=== PATIENT | male | born 1965 | race Caucasian/White ===

== ENCOUNTER 2022-02-27 11:39 | Outpatient (CLI) | payer OTHER, SELFPAY ==
[2022-02-27 22:00] LABS: Chloride* 101 mmol/L (96-114); Sodium* 139 mmol/L (135-149)
[2022-02-27 22:01] LABS: Albumin* 4.4 g/dL (3.3-5.0)
[2022-02-27 22:04] LABS: Alanine Aminotransferase* 52 U/L (4-50); Alkaline Phosphatase* 60 U/L (40-150); Aspartate Amino Transferase* 35 U/L (12-35); Bilirubin Total* 0.9 mg/dL (0.1-1.5); Blood Urea Nitrogen* 16 mg/dL (7-30); Calcium* 9.3 mg/dL (8.4-10.6); Carbon Dioxide* 30 mmol/L (20-32); Cholesterol* 224 mg/dL (90-199); Estimated Glomerular Filt Rate 88 ml/min; Glucose* 98 mg/dL (60-115); Total Protein* 6.8 g/dL (6.0-8.3); Triglycerides* 256 mg/dL (40-149)
[2022-02-27 22:05] LABS: HDL Cholesterol* 45 mg/dL (>=40); LDL Cholesterol Calculated 128 mg/dL (<100)
[2022-02-27 22:38] LABS: PSA Screen* 1.99 ng/mL (0.10-4.00)
== END 2022-02-27 11:40 | disposition home or self-care (01) ==
PROVIDERS: PCP Family Medicine; Visit Provider Family Medicine
DX: Z00.00 Encounter for general adult medical examination without abnormal findings (principal); Z01.818 Encounter for other preprocedural examination; Z12.5 Encounter for screening for malignant neoplasm of prostate; Z13.6 Encounter for screening for cardiovascular disorders
CPT/HCPCS: 80053; 80061; 84153

== ENCOUNTER 2023-12-02 23:22 | Emergency (ER) | payer OTHER, SELFPAY ==
[2023-12-02 23:31] VITALS: BP 186/98; PULSE 56; RESP 18; TEMP 36.2; O2SAT 94; BMI 28.1
--- NOTE | 2023-12-02 23:58 | ED_ITS ---
HPI - Back Pain/Injury General Time Seen by Provider: 23:59 Date Seen: 12/02/23 Chief Complaint: Back Injury/Pain Stated Complaint: back pain Time Seen by Provider: 12/02/23 23:58 Source: patient and RN notes reviewed Mode of arrival: ambulatory Limitations: no limitations Related Data Home Medications ?Medication ?Instructions ?Recorded ?Confirmed albuterol sulfate 90 mcg/actuation 2 inhalation PRN 02/27/22 12/31/22 aerosol inhaler cyclobenzaprine 10 mg tablet 10 mg PO TID PRN 02/27/22 12/31/22 Allergies Allergy/AdvReac Type Severity Reaction Status Date / Time No Known Allergies Allergy Unknown Verified 12/31/22 15:36 [facility] Medical History (Updated 05/07/22 @ 08:18 by Leslye Hernandes MD) Dupuytren's contracture of right hand ?M72.0 - Palmar fascial fibromatosis [Dupuytren] (ICD-10) Lesion of nose ?J34.89 - Other specified disorders of nose and nasal sinuses (ICD-10) Surgical History (Updated 02/25/22 @ 20:47 by Britni Lopez) History of umbilical hernia repair (05/11/18) ?Z98.890 - Other specified postprocedural states (ICD-10) ?Z87.19 - Personal history of other diseases of the digestive system (ICD-10) History of sinus surgery ?Z98.890 - Other specified postprocedural states (ICD-10) History of repair of right rotator cuff (03/09/16) ?Z98.890 - Other specified postprocedural states (ICD-10) History of left inguinal hernia repair (06/19/15) ?Z98.890 - Other specified postprocedural states (ICD-10) ?Z87.19 - Personal history of other diseases of the digestive system (ICD-10) History of arthroscopy of both knees ?Z98.890 - Other specified postprocedural states (ICD-10) Social History Smoking Status: Never smoker Exam Const: Vital Signs, click to edit/add: Vital Signs - 24 hr 12/02/23 23:31 Temperature 97.2 F L Pulse Rate [Pulse Oximeter] 56 L Respiratory Rate 18 Blood Pressure [Ri ght Upper Arm] 186/98 H Pulse Oximetry 94 Oxygen Delivery Me thod Room Air Course Vital Signs Vital signs: Initial Vital Signs Temperature 97.2 F L 12/02/23 23:31 Temperature Source Temporal Artery Scan 12/02/23 23:31 Pulse Rate 56 L 12/02/23 23:31 Pulse Rhythm Regular 12/02/23 23:31 Respiratory Rate 18 12/02/23 23:31 Blood Pressure 186/98 H 12/02/23 23:31 Blood Pressure Mean 127 H 12/02/23 23:31 Blood Pressure Position Supine 12/02/23 23:31 Pulse Oximetry 94 12/02/23 23:31 Oxygen Delivery Method Room Air 12/02/23 23:31 Vital Signs Temperature 97.2 F L 12/02/23 23:31 Pulse Rate 56 L 12/02/23 23:31 Respiratory Rate 18 12/02/23 23:31 Blood Pressure 186/98 H 12/02/23 23:31 Pulse Oximetry 94 12/02/23 23:31 Oxygen Delivery Method Room Air 12/02/23 23:31 Temperature 97.2 F L 12/02/23 23:31 Pulse Rate 56 L 12/02/23 23:31 Respiratory Rate 18 12/02/23 23:31 Blood Pressure 186/98 H 12/02/23 23:31 Pulse Oximetry 94 12/02/23 23:31 Oxygen Delivery Method Room Air 12/02/23 23:31 Discharge Plan Discharge Prescriptions: No Action cyclobenzaprine 10 mg tablet 10 mg PO TID PRN albuterol sulfate 90 mcg/actuation HFA aerosol inhaler 2 inhalation PRN Follow Up/Referrals: Jose M Cruz MD [Primary Care Provider] -
--- NOTE | 2023-12-03 00:06 | ED_ITS ---
HPI - Back Pain/Injury General Chief Complaint: Back Injury/Pain Stated Complaint: back pain Time Seen by Provider: 12/02/23 23:58 History of Present Illness HPI Narrative: This 58-year-old male comes in with sudden onset of severe low back pain. He was just moving from a sitting position to standing when he had sudden pain in his low back which she seems to feel that it is a bit left of midline. He does have a chronic history of spine problems and has had a surgery on C7 for cervi lul radiculopathy. He does not report any recent strenuous activity or injury event. He did take hydrocodone that he had left over at home prior to arrival. Related Data Home Medications ?Medication ?Instructions ?Recorded ?Confirmed albuterol sulfate 90 mcg/actuation 2 inhalation PRN 02/27/22 12/31/22 aerosol inhaler cyclobenzaprine 10 mg tablet 10 mg PO TID PRN 02/27/22 12/31/22 Previous Rx's ?Medication ?Instructions ?Recorded hydrocodone 5 mg-acetaminophen 325 1 tab PO Q4-6H PRN pain #15 tabs 12/03/23 mg tablet ketorolac 10 mg tablet 10 mg PO TID 5 days #15 tabs 12/03/23 methylprednisolone 4 mg tablets in See Rx Instructions PO .COMPLEX 12/03/23 a dose pack (Medrol (Bertrand)) #21 ea tizanidine 4 mg capsule (Zanaflex) 4 mg PO TID PRN muscle spasticity 12/03/23 #20 caps Allergies Allergy/AdvReac Type Severity Reaction Status Date / Time No Known Allergies Allergy Unknown Verified 12/31/22 15:36 Review of Systems Status of ROS: Reports: 10 or more systems reviewed and unremarkable except as noted in History and below Narrative: Constitutional: No fevers, no weight gain or loss. Eyes: No discharge. No vision changes. HENT: No congestion, no sore throat, no ear pain. Cardiovascular: No chest pain, no palpitations. Respiratory: No shortness of breath, no wheezes, no cough. Gastrointestinal: No abdominal pain, no vomiting, no diarrhea. Genitourinary: No dysuria, no hematuria. Musculoskeletal: Normal range of motion. Low back pain as described above. Skin: No rashes, no pruritis. Neurological: No dizziness, weakness, sensory change, speech change. Endo/Heme/Allergies: No bruising or bleeding. No polydipsia. Pysch: no suicidality, no anxiety, no insomnia. All other systems reviewed and are negative. [facility] Medical History (Updated 12/03/23 @ 00:09 by Uche Chen MD) Dupuytren's contracture of right hand ?M72.0 - Palmar fascial fibromatosis [Dupuytren] (ICD-10) Lesion of nose ?J34.89 - Other specified disorders of nose and nasal sinuses (ICD-10) Surgical History (Updated 02/25/22 @ 20:47 by Britni Lopez) History of umbilical hernia repair (05/11/18) ?Z98.890 - Other specified postprocedural states (ICD-10) ?Z87.19 - Personal history of other diseases of the digestive system (ICD-10) History of sinus surgery ?Z98.890 - Other specified postprocedural states (ICD-10) History of repair of right rotator cuff (03/09/16) ?Z98.890 - Other specified postprocedural states (ICD-10) History of left inguinal hernia repair (06/19/15) ?Z98.890 - Other specified postprocedural states (ICD-10) ?Z87.19 - Personal history of other diseases of the digestive system (ICD-10) History of arthroscopy of both knees ?Z98.890 - Other specified postprocedural states (ICD-10) Social History Smoking Status: Never smoker Exam Narrative: Exam Narrative: Constitutional: Well-developed, well-nourished, no acute distress. HEENT: Normocephalic, atraumatic. Neck: Normal range of motion. Nontender. Supple. Heart: Regular. No murmurs. Normal rate. Intact distal pulses. Lungs: Clear to auscultation. No chest discomfort. No wheezes, rhonchi, or rales. Abdomen: Normal bowel sounds. Nontender. No rebound tenderness. Genitalia: Deferred. Back: No midline tenderness. Decreased range of motion due to pain. He reports pain across the low back, left greater than right. There is no radiating pain down either leg. Extremities: Normal range of motion. No injury. Skin: Intact. No rash. Warm. No erythema or pallor. Neurologic: No altered sensation. No weakness. Alert and oriented. Psychiatric: No suicidality. No anxiety or depression. No insomnia. Nursing notes and vitals signs are reviewed. Const: Vital Signs, click to edit/add: Vital Signs - 24 hr 12/02/23 23:31 Temperature 97.2 F L Pulse Rate [Pulse Oximeter] 56 L Respiratory Rate 18 Blood Pressure [Ri ght Upper Arm] 186/98 H Pulse Oximetry 94 Oxygen Delivery Me thod Room Air Course Vital Signs Vital signs: Initial Vital Signs Temperature 97.2 F L 12/02/23 23:31 Temperature Source Temporal Artery Scan 12/02/23 23:31 Pulse Rate 56 L 12/02/23 23:31 Pulse Rhythm Regular 12/02/23 23:31 Respiratory Rate 18 12/02/23 23:31 Blood Pressure 186/98 H 12/02/23 23:31 Blood Pressure Mean 127 H 12/02/23 23:31 Blood Pressure Position Supine 12/02/23 23:31 Pulse Oximetry 94 12/02/23 23:31 Oxygen Delivery Method Room Air 12/02/23 23:31 Vital Signs Temperature 97.2 F L 12/02/23 23:31 Pulse Rate 56 L 12/02/23 23:31 Respiratory Rate 18 12/02/23 23:31 Blood Pressure 186/98 H 12/02/23 23:31 Pulse Oximetry 94 12/02/23 23:31 Oxygen Delivery Method Room Air 12/02/23 23:31 Temperature 97.2 F L 12/02/23 23:31 Pulse Rate 56 L 12/02/23 23:31 Respiratory Rate 18 12/02/23 23:31 Blood Pressure 186/98 H 12/02/23 23:31 Pulse Oximetry 94 12/02/23 23:31 Oxygen Delivery Method Room Air 12/02/23 23:31 MDM - Back Pain/Injury MDM Narrative Medical decision making narrative: This patient has a flare-up of low back pain as described above. There was no mechanism of injury that mandates imaging at this time. If not improved he may need MRI imaging. The patient received an intramuscular injection of morphine. I provided prescriptions for Broussard, Zanaflex, and Medrol Dosepak. I advised him to follow-up with spine clinic if not improving or worsening. Discharge Plan Discharge Clinical Impression: Low back pain Patient Disposition: Home w/ Parent or Adult Condition: Stable Additional Instructions: Take medication as needed and indicated. Activity as tolerated. Follow up with Spine Clinic if not improving or worsening. Call [phone] for appointment. Prescriptions: New hydrocodone-acetaminophen 5-325 mg tablet 1 tab PO Q4-6H PRN (Reason: pain) Qty: 15 0RF ketorolac 10 mg tablet 10 mg PO TID 5 Days Qty: 15 0RF methylprednisolone [Medrol (Bertrand)] 4 mg tablets,dose pack See Rx Instructions .ROUTE .COMPLEX Qty: 21 0RF Rx Instructions: orally per package directions tizanidine [Zanaflex] 4 mg capsule 4 mg PO TID PRN (Reason: muscle spasticity) Qty: 20 0RF No Action cyclobenzaprine 10 mg tablet 10 mg PO TID PRN albuterol sulfate 90 mcg/actuation HFA aerosol inhaler 2 inhalation PRN Follow Up/Referrals: Jose M Cruz MD [Primary Care Provider] - Stand Alone Forms: [facility] Info Instructions
[2023-12-03] MEDS: MORPHINE 10 MG/ML inj IM (00:17)
--- OUTSIDE RECORDS SUMMARY | 2023-12-03 00:21 | XMS_ITS | Clinical Summary ---
Author Organization [facility] Address [address] [place] [address] Care Team Providers Care Cable Operator Name Role Phone Clinician, Not Found MD Primary Care Provider Un available Source Comments You are receiving this document as you are listed as the primary care provider,follow-up provider, or the patient has been referred to you for consultation.This is in compliance with the Medicare and[facility] EHR Incentive Program,which states Providers who transition their patient to another setting of careor provider of care or refers their patient to another provider of care shouldprovide summary care record for each transition of care or referral. [facility] Allergies No known active allergies Medications Medication Sig Dispensed Refills Start Date End Date Status ALBUTEROL IN Inhale 2 puffs every 4 hours as needed. LW Addl Instr:Indicated for: Asthma/cough 34 3 09/18/2007 Active mometasone (NASONEX) 50 MCG/ACT nasal solution Place 2 sprays into each nostril daily (every 24 hours). 09/26/2015 Active omeprazole (PRILOSEC) 10 MG capsule Take 10 mg by mouth daily. Take 1 hour before a meal. Active ALBUterol sulfate HFA 108 (90 Base) MCG/ACT inhaler INHALE 2 PUFFS BY MOUTH EVERY 4 HOURS NEEDED 07/19/2020 Active ADVAIR DISKUS 100-50 MCG/DOSE inhaler 1 Puff two times a day. 08/14/2020 Active Glucosamine-Chondroi tin 4976-9979 MG/30ML Take by mouth. Active multivitamin with minerals (THERA M PLUS) tablet Take 1 Tablet by mouth. Active naproxen (NAPROSYN) 500 MG tablet Take 1 Tablet by mouth two times daily as needed. 60 Tablet 10/01/2020 Active sulindac (CLINORIL) 150 MG tablet Take 1 Tablet by mouth two times daily as needed for Other (pain). 60 Tablet 10/16/2020 Active gabapentin (NEURONTIN) 300 MG capsule Take 1 Capsule by mouth three times a day. 270 Capsule 3 10/22/2020 Active Active Problems Problem Noted Date Diagnosed Date Allergic rhinitis 03/05/2004 Overview: Rhinitis Allergic NOS Social History Tobacco Use Types Packs/Day Years Used Date Smoking Tobacco: Never Smokeless Tobacco: Never Alcohol Use Standard Drinks/Week Comments Yes 0 (1 standard drink = 0.6 oz pur e alcohol) socially Sex and Gender Information Value Date Recorded Sex Assigned at Not on file Gender Identity Not on file Sexual Orientation Not on file Last Filed Vital Signs Vital Sign Reading Time Taken Comments Blood Pressure 137/86 03/09/2016 10:45 AM CDT Pulse 54 03/09/2016 10:45 AM CDT Temperature 35.7 ??C (96.2 ??F) 09/27/2020 2:34 PM CD T Respiratory Rate 16 03/09/2016 10:45 AM CDT Oxygen Saturation 97% 03/09/2016 10:45 AM CDT Inhaled Oxygen Concentration - - Weight 102.1 kg (225 lb) 10/22/2020 7:55 AM CDT Height 190.5 cm (6' 3) 10/22/2020 7:55 AM CDT Body Mass Index 28.12 10/22/2020 7:55 AM CDT Plan of Treatment Health Maintenance Due Date Last Done Comments Colon Cancer Screening Plan Due 1965 Hep C Screening (Preventive Services) 1965 PSA Screening Discussion 1965 HIV Screening (Preventive Services) 1981 Adult Preventive Visit 1983 HepB (1) 1984 Cholesterol 10/31/2009 10/31/2004 COVID-19 Vaccine (4 - 2022-2 4 season) 2023 05/14/2021, 10/08/2020, 09/17/2020 Influenza (Season Ended) 2024 022, 04/04/2018 DTaP/Tdap/Td (3 - Tdap) 07/19/2030 07/19/19 21, 04/02/2008 Zoster/Shingles Completed 01/28/2022, 05/14/2021 HepA Aged Out No longer eligi ble based on patient's age to complete this topic Hib Aged Out No longer eligi ble based on patient's age to complete this topic IPV (Polio) Aged Out No longer eligi ble based on patient's age to complete this topic MCV4 Aged Out No longer eligi ble based on patient's age to complete this topic Pneumococcal Aged Out No longer eligi ble based on patient's age to complete this topic Medical Devices Implanted Type Area Rail Filler Device Identifier Shelf Expiration Date Model / Serial / Lot Anch Sut Bioswlk C 4.75x19 - [id number] Implanted:Qty: 2 on 03/09/2016 by Eric Sherwood MD at [facility] Right: SHOULDER [employer] 11/04/2017 [id number] / [id number] / [id number] Procedures Procedure Name Priority Date/Time Associated Diagnosis Comments LIPID PANEL & DIRECT LDL (IF NEEDED) Routine 10/31/2004 10:58 AM CDT from Last 3 Months or Most Recently Relevant to Health Maintenance Results * (ABNORMAL) Lipid Panel and Direct LDL(If Needed) (10/31/2004 10:58 AM CDT) Cholesterol/HDL Ratio Screen 4.7 No normal range HP CONVERSION Cholesterol 211(H) <200 mg/dL HP CONVERSION Comment: Borderline high: 200-239 mg/dL High risk: >240 mg/dL HDL Cholesterol 45 40 - 60 mg/dL HP CONVERSION Triglycerides 133 0 - 149 mg/dL HP CONVERSION LDL Calculated 139(H) 0 - 130 mg/dL HP CONVERSION Comment: Desirable: <130 mg/dL (<100 if diabetes or coronary heart disease) Borderline high: 130-159 mg/dL High risk: >159 mg/dL 10/31/2004 10:5 8 AM CDT Paul Landrum MD LAB_[email or web address] HP CONVERSION from Last 3 Months or Most Recently Relevant to Health Maintenance Advance Directives * Full Code (Latest Code Status on File) Date Activated Date Inactivated Comments 03/09/2016 9:11 AM 03/09/2016 1:28 PM Full code in effect for 30 days Care Teams Cable Operator Relationship Specialty Start Date End Date Clinician, Not Found, [place] [address] PCP - General 09/19/15
--- OUTSIDE RECORDS SUMMARY | 2023-12-03 00:22 | XMS_ITS | Referral Summary ---
Author Organization [facility] Address [address] [place] [address]. [place] [address] Care Team Providers Care Refinery Operator Reforming Unit Name Role Phone Unavailable Primary Care Provider Unavailabl e Allergies Active Allergy Reactions Criticality Noted Date Comments Seasonal Allergies 11/27/2011 Medications Medication Sig Dispensed Refills Start Date End Date Status Naproxen Sodium (ALEVE PO) Take by mouth 2 times daily Active multivitamin w/minerals (MULTI-VITAMIN) tablet Take 1 tablet by mouth daily Active Glucosamine-Chondroit in (GLUCOSAMINE CHONDR COMPLEX PO) Active HYDROcodone-acetamino phen (NORCO) 5-325 MG tabletIndications:Umb ilical hernia without obstruction and without gangrene Take 1-2 tablets by mouth every 4 hours as needed (Moderate to Severe Pain) 20 tablet 05/11/2018 Active Active Problems Problem Noted Date Diagnosed Date Other kyphoscoliosis and scoliosis 06/21/2007 Lipoma of other skin and subcutaneous tissue Allergic rhinitis 03/05/2004 Overview: Overview: Rhinitis Allergic NOS Resolved Problems Problem Noted Date Diagnosed Date Resolved Date CARDIOVASCULAR SCREENING; LD L GOAL LESS THAN 160 04/06/2010 06/12/2015 Immunizations Name Administration Dates Next Due TDAP Vaccine (Adacel) 04/02/2008 Social History Tobacco Use Types Packs/Day Years Used Date Smoking Tobacco: Never Smokeless Tobacco: Never Tobacco Cessation:Counseling Given: Yes Alcohol Use Standard Drinks/Week Comments Yes 0 (1 standard drink = 0.6 oz pur e alcohol) 5-10 drinks per week PHQ-2 Answer Date Recorded PHQ-2 Score 0 06/15/2018 Adolescent Education Answer Date Record ed Getting School Help Needed Not on file 03/23 Sex and Gender Information Value Date Recorded Sex Assigned at Not on file Gender Identity Not on file Sexual Orientation Not on file Last Filed Vital Signs Vital Sign Reading Time Taken Comments Blood Pressure 129/71 05/11/2018 6:14 PM SPRING INTERN Pulse 68 05/09/2018 9:39 AM SPRING INTERN Temperature 36.3 ??C (97.3 ??F) 05/11/2018 5:24 PM CS T Respiratory Rate 16 05/11/2018 6:14 PM SPRING INTERN Oxygen Saturation 95% 05/11/2018 6:14 PM SPRING INTERN Inhaled Oxygen Concentration - - Weight 103.4 kg (228 lb) 05/11/2018 11:52 AM SPRING INTERN Height 190.5 cm (6' 3) 05/11/2018 11:52 AM SPRING INTERN Body Mass Index 28.5 05/11/2018 11:52 AM SPRING INTERN Plan of Treatment Not on file Medical Devices Implanted Type Area Web Design Intern Device Identifier Shelf Expiration Date Model / Serial / Lot Mesh Ventralex Hernia 2.5 [place] [employer] W/Strap [id number] Implanted:Qty : 1 on 05/11/2018 by Anna Balbuena MD at [facility] Mesh N/A: Umbilical [employer]-DAVOL 02/02/2020 [id number] / / [id number] Mesh Ultrapro Hernia 2.4x4.7 Large Uhsl Implanted:Qty : 1 on 06/19/2015 by Trent Thompson MD at [facility] Left: Inguinal [employer]- 10/04/2016 UHSL / / [id number]
--- OUTSIDE RECORDS SUMMARY | 2023-12-03 00:22 | XMS_ITS | Continuity of Care Document ---
Author Organization [facility] Address [address] [place] [address] Phone Care Team Providers Care Food Processor Name Role Phone Jessica COLEMAN, PhD, Bernardo Unavailable Unavai lable Allergies, Adverse Reactions, Alerts Substance Reaction Status Criticality No Known Allergies Active No Inform ation Medications Medication Instructions Dosage Effective Dates (start - stop) Status Comments TYLENOL (unknown strength) Not Available - Active Procedures Procedure Date Office/Outpatient Visit,Est, Mod 2022 Postop Followup Visit ACDF - Anterior Cervical Discectomy and Fusion - PA Anterior Instrumentation, 2-3 Segments - PA PEEK/ Cage/ Implant, For Interbody Fusio n - PA ACDF - Anterior Cervical Discectomy and Fusion Anterior Instrumentation, 2-3 Segments S PEEK/ Cage/ Implant, For Interbody Fusio n Autograft, From Same Incision Office/Outpatient Visit,Est, Mod 2021 Office/Outpatient Visit,Est, Mod 2021 OFFICE/OUTPATIENT VISIT EST Phone Office/Outpatient Visit,Est, Mod 2019 X-Ray Exam Of Neck Spine, 4+ Views Office/Outpatient Visit,New, Min 2017 Advance Directives Directive Yes / No Effective Date File Name No Information Encounters Encounter Description Practice Location Reason(s) For Visit Diagnoses Date Provider Providers Copied on Encounter Office/Outpat ient Visit,Est, Mod [facility], [address], [place], [place], [id number] , [place] tel:[phone] [facility] Encounter for other specified surgical aftercare 3 Jessica Chang. [facility], [address], [place], [address], [place]. tel:[phone] Referring Provider: Peter Cole, [facility] [address], [place], [address]. tel:[phone] [facility], [address], [place], [place], [address] , [place] tel:[phone] [facility] Encounter for other specified surgical aftercare 2 Jessica Chang. [facility], [address], [place], [address], [place]. tel:[phone] Referring Provider: Peter Cole, [facility] [address], [place], [address]. tel:[phone] [facility], [address], [place], [place], [id number] , [place] tel:[phone] [facility] No Information Sep-3 2 Douglas Green. [facility], [address], [place], [place], [id number], [place]. tel:[phone] Referring Provider: Peter Cole [facility] [address], [place], [address]. tel:[phone] [facility], [address], [place], [address] , [place] tel:[phone] [facility] No Information Sep-2 2 Jessica Chang. [facility], [address], [place], [address], [place]. tel:[phone] Referring Provider: Peter Cole [facility] [address], [place], [address]. tel:[phone] Office/Outpat ient Visit,Est, Mod [facility], [address], [place], [place], [id number] , [place] tel:[phone] [facility] Cervical disc disorder at C6-C7 level with radiculopathy 2 Douglas Green. [facility], [address], [place], [place], [address], [place]. tel:[phone] Referring Provider: Peter Cole, [facility] [address], [place], [address]. tel:[phone] Office/Outpat ient Visit,Est, Mod [facility], [address], [place], [place], [id number] , [place] tel: [phone] [facility] Cervical disc disorder at C6-C7 level with radiculopathy 2 Douglas Green. [facility], [address], [place], [place], [address], [place]. tel:[phone] Referring Provider: Peter Cole, [facility] [address], [place], [address]. tel:[phone] OFFICE/OUTPAT IENT VISIT EST Phone [facility], [address], [place], [place], [address] , [place] tel:[phone] [facility] No Information 0 Douglas Green. [facility], [address], [place], [place], [address], [place]. tel:[phone] Referring Provider: Peter Cole, [facility] [address], [place], [address]. [phone] Office/Outpat ient Visit,Est, Mod [facility], [address], [place], [place], [address] , [place] tel:[phone] [facility] Radiculopathy, cervical region 0 Douglas Green. [facility], [address] [facility] [address], [id number], . tel:[phone] Referring Provider: Milo Langston, [facility] [address], [address], [address]. tel:[phone] Office/Outpat ient Visit,New, Min [facility], [address], [place], [place], [address] , tel:[phone] [facility] Other intervertebral disc degeneration, lumbar region 8 Transfeldt Milo. [facility], [address] [place] [address], [address], [id number], . tel:[phone] Referring Provider: Milo Langston, [facility] [address], [address], [address]. tel:[phone] Family History Family Member Type Diagnosis Age At Onset No Information Payers Payer name Insurance type Covered republican ID Fang laureano(s) [facility] CI [id number] Social History Type Description Quantity Date Captured Comments Alcohol Use Details Unknown Caffeine Use Details Unknown Tobacco Use Status Current non-smoker Smoking Status Never smoker Non-Smoking Tobacco Use Details : No Details Available : No Details Available Sex Male Vital Signs Date / Time: Height Weight BMI Pulse Rate Blood Pressure Temperature Respiratory Rate Body Surface Area Head Circumference Head Circ. Percentile Wt./Will. Percentile BMI percentile Pulse Ox Inhaled Ox 3:17 PM 75.00 in 108.409 kg (239.00 lbs) 29.8 7 kg/m eter (2) Chief Complaint And Reason For Visit No Information Reason For Referral Reason For Referral No Information Plan Of Treatment Date Type Action Status Future Order: Radiology Order PA /Lateral Full Spine (PALatFS), Ordered on: Ordered History Of Present Illness Encounter Date Complaint History Of Prese nt Illness No Information Functional Status Date Functional Assessmen t No Information Instructions Date Instruction Additional Infor mation No Information Assessments Type Assessment Date No Information Patient Care Teams Name Effective Dates (start - stop) Status Members No Information
--- OUTSIDE RECORDS SUMMARY | 2023-12-03 00:22 | XMS_ITS | Clinical Summary ---
Author Organization [employer] [facility] Address [place], [place] [address] Care Team Providers Care Neuropsychologist Name Role Phone Jose M Cruz MD Primary Care Provider [phone] Allergies No known active allergies Medications Medication Sig Dispensed Refills Start Date End Date Status mometasone (NASONEX) (50 mcg each actuation) nasal spray Inhale 2 Sprays into affected nostril(s) once daily if needed. 09/26/2015 Active Multivits,Ca,[place] als-Iron-FA 9 mg iron-400 mcg tablet Take 1 Tablet by mouth once daily. Active albuterol HFA (PRO-AIR; VENTOLIN; PROVENTIL) 90 mcg/actuation inhaler Take 2 Puffs by mouth every 4 hours if needed. 07/19/2020 Active loratadine (CLARITIN) 10 mg tablet Take 10 mg by mouth once daily. Active glucosamine-chondr oitin, 500-400 mg, (COSAMIN DS 500/400) 500-400 mg cap Take 1 Capsule by mouth once daily. Active fluticasone propion-salmeteroL (Advair Diskus) 100-50 mcg/dose diskus inhaler Inhale 1 Puff by mouth 2 times daily if needed. Active methocarbamoL (ROBAXIN) 750 mg tabletIndications: Cervical spinal stenosis Take 1 Tablet (750 mg) by mouth every 6 hours if needed for Muscle Spasm. 20 Tablet 03/05/2022 Active HYDROcodone-acetam inophen (NORCO) 5-325 mg per tabletIndications: Cervical spinal stenosis Take 1-2 Tablets by mouth every 4 hours if needed for Pain. Max acetaminophen dose: 4000 mg in 24 hrs. 25 Tablet 03/05/2022 Active Active Problems Problem Noted Date Diagnosed Date Cervical spinal stenosis 03/05/2022 Asthma 03/05/2022 Allergic rhinitis 03/05/2022 Pain in joint, pelvic region and thigh 7 Lipoma of other skin and subcutaneous tissue Social History Tobacco Use Types Packs/Day Years Used Date Smoking Tobacco: Never Smokeless Tobacco: Never Alcohol Use Standard Drinks/Week Comments Yes 0 (1 standard drink = 0.6 oz pur e alcohol) socially Sex and Gender Information Value Date Recorded Sex Assigned at Not on file Gender Identity Not on file Sexual Orientation Not on file Obstetrics History Last Filed Vital Signs Vital Sign Reading Time Taken Comments Blood Pressure 143/76 03/05/2022 3:30 PM CDT Pulse 68 03/05/2022 3:30 PM CDT Temperature 36.5 ??C (97.7 ??F) 03/05/2022 3:30 PM CD T Respiratory Rate 18 03/05/2022 3:30 PM CDT Oxygen Saturation 95% 03/05/2022 3:30 PM CDT Inhaled Oxygen Concentration - - Weight 109 kg (240 lb 3.2 oz) 03/05/2022 6:29 AM CDT Height 188.6 cm (6' 2.25) 03/03/2022 5:43 PM CD T Body Mass Index 30.63 03/03/2022 5:43 PM CDT Plan of Treatment Health Maintenance Due Date Last Done Comments Tdap 1976 Depression screening for age 12+ 1977 HIV for age 15-65 1980 Hepatitis C screening for ag e 18-79 1983 Tetanus booster 1985 Colonoscopy through age 75 2010 Lipids for age 45-75 2010 Zoster (shingles) series for age 50+ (1 of 2) 2015 BMI (ht and wt on same day) for age 18+ 06/05/2020 06/05/2019 COVID-19 vaccine series ( season) 2023 05/14/2021, 10/08/2020, 09/17/2020 Influenza for age 50-64 02/06/2024 Pneumococcal series for age 6-64 Aged Out No longer eligible b ased on patient's age to complete this topic Medical Devices Implanted Type Area Machine Tester Device Identifier Shelf Expiration Date Model / Serial / Lot Bone 1-4mm 15cc Medtronic Chips Canclls Freeze Dried - [id number] Implanted:Qty: 1 on 03/05/2022 by Bernardo Lopez MD at [facility] N/A: Cervical Vertebrae Medtronic Spine/Ortho 01/01/2026 [id number] / [id number] / Medtronic Spacer 7mm X 16mm X 14 Mm Implanted:Qty: 1 on 03/05/2022 by Bernardo Lopez MD at [facility] N/A: Cervical Vertebrae Medtronic Spine/Ortho 12/30/2029 [id number] / / 35MT Plate Cerv 1lvl 23mm Fouke Vision Elite Ant - [id number] Implanted:Qty: 1 on 03/05/2022 by Bernardo Lopez MD at [facility] N/A: Cervical Vertebrae Medtronic Spine/Ortho [id number] / / Screw Cerv Ant 4x16mm Fouke Translational Fa Slf Tppng - [id number] Implanted:Qty: 2 on 03/05/2022 by Bernardo Lopez MD at [facility] N/A: Cervical Vertebrae Medtronic Spine/Ortho [id number] / / Screw Cerv Ant 4x16mm Fouke Translational Va Slf Tppng - [id number] Implanted:Qty: 2 on 03/05/2022 by Bernardo Lopez MD at [facility] N/A: Cervical Vertebrae Medtronic Spine/Ortho [id number] / / Advance Directives * Full Code (Latest Code Status on File) Date Activated Date Inactivated Comments 03/05/2022 1:35 PM 03/05/2022 11:57 PM Question Answer Comments Code Status Discussion: Per Existing Order Care Teams Neuropsychologist Relationship Specialty Start Date End Date Jose M Cruz MD [address] [place] [address] PCP - General Family Practice 02/17/22
--- OUTSIDE RECORDS SUMMARY | 2023-12-03 00:22 | XMS_ITS | Clinical Summary ---
Author Organization [facility] Address [address] [place] [address]. [place] [address] Care Team Providers Care Filler In Name Role Phone Unavailable Primary Care Provider [...] Dates Next Due TDAP Vaccine (Adacel) 04/02/2008 Family History Medical History Relation Comments Cancer Father skin cancer (non -melanoma) Hypertension Father Colon Cancer Maternal Grandfather Back Pain Mother spinal stenosis Cancer Mother Ovarian Chronic Obstructive Pulmonary Disease Mother C.A.D. No family hx of Cerebrovascular Disease No family hx of Diabetes No family hx of Relation Status Comments Brother Alive Father Alive Maternal Grandfather Maternal Grandmother Mother Paternal Grandfather Paternal Grandmother Sister Alive 2 Social History Tobacco Use Types Packs/Day Years [...] Comments Blood Pressure 129/71 05/11/2018 6:14 PM WAREHOUSE SHIPPING RECEIVING CLERK Pulse 68 05/09/2018 9:39 AM WAREHOUSE SHIPPING RECEIVING CLERK Temperature 36.3 ??C (97.3 ??F) 05/11/2018 5:24 PM CS T Respiratory Rate 16 05/11/2018 6:14 PM WAREHOUSE SHIPPING RECEIVING CLERK Oxygen Saturation 95% 05/11/2018 6:14 PM WAREHOUSE SHIPPING RECEIVING CLERK Inhaled Oxygen Concentration - - Weight 103.4 kg (228 lb) 05/11/2018 11:52 AM WAREHOUSE SHIPPING RECEIVING CLERK Height 190.5 cm (6' 3) 05/11/2018 11:52 AM WAREHOUSE SHIPPING RECEIVING CLERK Body Mass Index 28.5 05/11/2018 11:52 AM WAREHOUSE SHIPPING RECEIVING CLERK Plan of Treatment Not on file Medical Devices Implanted Type Area Heading Machine Operator Device Identifier Shelf Expiration Date Model / Serial / Lot Mesh Ventralex Hernia 2.5 [place] Med W/Strap [id number] Implanted:Qty : 1 on 05/11/2018 by Anna Balbuena MD at [facility] Mesh N/A: Umbilical [employer]-DAVOL 02/02/2020 [id number] / / [id number] Mesh Ultrapro Hernia 2.4x4.7 Large Uhsl Implanted:Qty : 1 on 06/19/2015 by Trent Thompson MD at [facility] Left: Inguinal [employer]- 10/04/2016 UHSL / / [id number]
--- OUTSIDE RECORDS SUMMARY | 2023-12-03 00:22 | XMS_ITS | Continuity of Care Document ---
Author Organization [facility] Address [address] [place] [address] Phone Care Team Providers Care Tamping Machine Operator Road Forms Name Role Phone Jessica COLEMAN, PhD, Bernardo [...] [place], [address], [place], [place], [id number] , [place] tel:[phone] [facility] Encounter for other specified surgical aftercare 3 Jessica Chang. [facility], [address], [place], [address], [place]. tel:[phone] Referring Provider: Peter Cole, [facility] [address], [place], [address]. tel:[phone] [facility], [address], [place], [place], [address] , [place] tel:[phone] [facility] Encounter for other specified surgical aftercare 2 Jessica Chang. [facility], [address], [place], [address], [place]. tel:[phone] Referring Provider: Peter Cole, [facility] [address], [place], [address]. tel:[phone] [facility], [address], [place], [place], [address] , [place] tel:[phone] [facility] No Information Sep-3 2 Douglas Green. [facility], [address], [place], [place], [address], [place]. tel:[phone] Referring Provider: Peter Cole [facility] [address], [place], [address]. tel:[phone] [facility], [address], [place], [place], [id number] , [place] tel:[phone] [facility] No Information Sep-2 2 Jessica Chang. [facility], [address], [place], [address], [place]. tel:[phone] Referring Provider: Peter Cole [facility] [address], [place], [address]. tel:[phone] Office/Outpat ient Visit,Est, Mod [facility], [address], [place], [place], [address] , [place] tel:[phone] [facility] Cervical disc disorder at C6-C7 level with radiculopathy 2 Douglas Green. [facility], [address], [place], [place], [id number], [place]. tel:[phone] Referring Provider: Peter Cole, [facility] [address], [place], [address]. tel:[phone] Office/Outpat ient Visit,Est, Mod [facility], [address], [place], [place], [address] , [place] tel: [phone] [facility] Cervical disc disorder at C6-C7 level with radiculopathy 2 Douglas Green. [facility], [address], [place], [place], [address], [place]. tel:[phone] Referring Provider: Peter Cole, [facility] [address], [place], [address]. tel:[phone] OFFICE/OUTPAT IENT VISIT EST Phone [facility], [address], [place], [place], [address] , [place] tel:[phone] [facility] No Information 0 Douglas Green. [facility], [address], [place], [place], [address], [place]. tel:[phone] Referring Provider: Peter Cole, [facility] [address], [place], [address]. [phone] Office/Outpat ient Visit,Est, Mod [facility], [address], [place], [place], [address] , [place] tel:[phone] [facility] Radiculopathy, cervical region 0 Douglas Green. [facility], [address] [facility] [address], [id number], . tel:[phone] Referring Provider: Milo Langston, [facility] [address], [address], [address]. tel:[phone] Office/Outpat ient Visit,New, Min [facility], [address], [place], [place], [address] , tel:[phone] [facility] Other intervertebral disc degeneration, lumbar region 8 Transfeldt Milo. [facility], [address] [place] [address], [address], [id number], . tel:[phone] Referring Provider: Milo Langston, [facility] [address], [address], [address]. tel:[phone] Family History Family Member Type Diagnosis Age At Onset No Information Payers Payer name Insurance type Covered democrat ID Fang laureano(s) [facility] CI [id number] Social History Type Description Quantity Date Captured [...]
[2023-12-03] MEDS: 0.9 % SODIUM CHLORIDE 1000 ml 1,000 ML IV (01:00)
--- NOTE | 2023-12-03 01:00 | PC.NURSE ---
Pt heart rate 30s, diaphoretic, feels a little lightheaded. Pt. laid flat, physician informed and IV NS bolus started. Will continue to assess pt.
[2023-12-03 01:32] VITALS: BP 139/78; PULSE 47; RESP 12; TEMP 36.3; O2SAT 98
[2023-12-03 01:45] VITALS: BP 152/85; PULSE 45; RESP 12; O2SAT 98
[2023-12-03 02:47] VITALS: BP 139/81; PULSE 48; RESP 12; O2SAT 98
[2023-12-03 03:24] VITALS: BP 153/87; PULSE 48; RESP 12; O2SAT 96
--- NOTE | 2023-12-03 03:25 | PC.NURSE ---
Pt requesting to rest awhile longer before attempting to get up out of bed. Will keep monitoring pt. and check in 20-30 minutes. Heart rate up to 60s with awakening pt., states he is feeling better unless he attempts to move then gets return of pain/spasms.
[2023-12-03] MEDS: CYCLOBENZAPRINE HCL 10 MG TABLET PO (05:30)
[2023-12-03 05:56] VITALS: BP 154/80; PULSE 56; RESP 16; TEMP 36.7; O2SAT 98
[2023-12-03] MEDS: KETOROLAC 15 MG/ML inj IVP (05:56)
--- NOTE | 2023-12-03 05:57 | PC.NURSE ---
Pt has been sleeping. Awakened for reassessment, states he was able to get some sleep. Pain is improved. Requested another muscle relaxer and toradol prior to discharge. pt. tolerated transferring from bed to wheelchair well. Reviewed discharge instructions with pt and pt's . VSS.
== END 2023-12-03 05:59 | disposition home or self-care (01) ==
PROVIDERS: Emergency Provider Family Medicine; PCP Family Medicine
DX: M54.50 Low back pain, unspecified (principal)
CPT/HCPCS: 96372; 96374; 99283; 99284; A9270; J1885; J2270; J7030

== ENCOUNTER 2024-08-17 11:06 | Outpatient (CLI) | payer OTHER, SELFPAY | END 2024-08-17 11:07 | disposition home or self-care (01) | PROVIDERS: PCP Family Medicine; Visit Provider Family Medicine | DX: E78.00 Pure hypercholesterolemia, unspecified (principal); R03.0 Elevated blood-pressure reading, without diagnosis of hypertension; Z12.5 Encounter for screening for malignant neoplasm of prostate | CPT/HCPCS: 80053; 80061; G0103 ==

== ENCOUNTER 2024-12-11 18:48 | Outpatient (CLI) | payer OTHER, SELFPAY | END 2024-12-11 18:49 | disposition home or self-care (01) | LOC: NFLDREF 12-14 06:39 | PROVIDERS: PCP Family Medicine; Referring Provider Family Medicine; Visit Provider Family Medicine | DX: I10 Essential (primary) hypertension (principal); E11.9 Type 2 diabetes mellitus without complications; R79.89 Other specified abnormal findings of blood chemistry | CPT/HCPCS: 82043; 82570 ==

== ENCOUNTER 2024-12-19 10:18 | Outpatient (CLI) | payer OTHER, SELFPAY ==
--- NOTE | 2024-12-19 10:45 | CRLHL7_ITS ---
For Patients: As a result of the Century Cures Act, medical imaging exams and procedure reports are released immediately into your electronic medical record. You may view this report before your referring provider. If you have questions, please contact your health care provider. INDICATION: Elevated LFTs COMPARISON: none TECHNIQUE: Real time hairston scale imaging and color Doppler analysis was performed of the right upper quadrant. FINDINGS: Liver echotexture is diffusely increased. Liver measures 20.0 cm. No intrahepatic mass. There is a normal appearance of the hepatic IVC and proximal abdominal aorta. There is no evidence of ascites. The gallbladder is of normal size and there is no evidence of intraluminal stones or sludge. The gallbladder wall measures 2 mm in thickness. The common bile duct is of normal size and measures 5 mm in diameter at the level of the melba hepatis. The pancreas appears normal. There is no evidence of a stone or hydronephrosis within the right kidney. The right kidney measures 12.9 cm in length. IMPRESSION: Hepatomegaly with moderately severe hepatic steatosis. Remainder unremarkable. Dictated by Trent Aguilar MD @ 12/19/2024 12:39:34 PM (Electronically Signed)
== END 2024-12-19 10:19 | disposition home or self-care (01) ==
LOC: US 10:19
PROVIDERS: PCP Family Medicine; Visit Provider Family Medicine
DX: R79.89 Other specified abnormal findings of blood chemistry (principal); R16.0 Hepatomegaly, not elsewhere classified; K76.0 Fatty (change of) liver, not elsewhere classified
CPT/HCPCS: 76705

== ENCOUNTER 2025-01-15 22:17 | Observation (INO) | payer OTHER, SELFPAY ==
[2025-01-15] VITALS (20 sets, daily range): BP systolic 152–195; BP diastolic 82–110; PULSE 56–76; RESP 9–23; TEMP 36.5; O2SAT 92–97; BMI 29.9
--- OUTSIDE RECORDS SUMMARY | 2025-01-15 22:19 | XMS_ITS | Clinical Summary ---
Author Organization [facility] Address [facility] [place] [address] Care Team Providers Care Design/Animation Instructor Name Role Phone Jose M Cruz MD Primary Care Provider [phone] Allergies No known active allergies Medications mometasone (NASONEX) (50 mcg each actuation) nasal spray Inhale 2 Sprays into affected nostril(s) once daily if needed. 6 Active Multivits,Ca,M mshlhsr-Rypm-W A 9 mg iron-400 mcg tablet Take 1 Tablet by mouth once daily. Active albuterol HFA (PRO-AIR; VENTOLIN; PROVENTIL) 90 mcg/actuation inhaler Take 2 Puffs by mouth every 4 hours if needed. 1 Active loratadine (CLARITIN) 10 mg tablet Take 10 mg by mouth once daily. Active glucosamine-ch ondroitin, 500-400 mg, (COSAMIN DS 500/400) 500-400 mg cap Take 1 Capsule by mouth once daily. Active fluticasone propion-salmet Xavi (Advair Diskus) 100-50 mcg/dose diskus inhaler Inhale 1 Puff by mouth 2 times daily if needed. Active methocarbamoL (ROBAXIN) 750 mg tabletIndicati ons:Cervical spinal stenosis Take 1 Tablet (750 mg) by mouth every 6 hours if needed for Muscle Spasm. 20 Tablet 03/05/2022 9:02 PM CDT 2 Active HYDROcodone-ac etaminophen (NORCO) 5-325 mg per tabletIndicati ons:Cervical spinal stenosis Take 1-2 Tablets by mouth every 4 hours if needed for Pain. Max acetaminophen dose: 4000 mg in 24 hrs. 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 Gender Identity Not on file Sexual Orientation Not on file Obstetrics History Last Filed Vital Signs Vital Sign Reading Time Taken Comments Blood Pressure 143/76 03/05/2022 3:30 PM CDT Pulse 68 03/05/2022 3:30 PM CDT Temperature 36.5 C (97.7 F) 03/05/2022 3:30 PM CDT Respiratory Rate 18 03/05/2022 3:30 PM CDT Oxygen Saturation 95% 03/05/2022 3:30 PM CDT Inhaled Oxygen Concentration - - Weight 109 kg (240 lb 3.2 oz) 03/05/2022 6:29 AM CDT Height 188.6 cm (6' 2.25) 03/03/2022 5:43 PM CD T Body Mass Index 30.63 03/03/2022 5:43 PM CDT Plan of Treatment Health Maintenance Due Date Last Done Comments Tetanus booster 1976 Depression screening for age 12+ 1977 HIV for age 15-65 1980 Hepatitis C screening for age 18-79 1983 Hepatitis B series for 19+ ( 1 of 3 - 19+ 3-dose series) 1984 Colonoscopy through age 75 2010 Lipids for age 45-75 2010 Pneumococcal series for age 50+ (1 of 1 - PCV) 2015 Zoster (shingles) series for age 50+ (1 of 2) 2015 BMI (ht and wt on same day) for age 18+ 06/05/2020 06/05/2019 COVID-19 vaccine series ( season) 2024 05/14/2021, 10/08/2020, 09/17/2020 Influenza Vaccine (#1) 2025 Medical Devices Implanted Type Area Barrel Polisher Device Identifier Shelf Expiration Date Model / Serial / Lot Bone 1-4mm 15cc Medtronic Chips Canclls Freeze Dried - [id number] Implanted:Qty: 1 on 03/05/2022 by Bernardo Lopez MD at [facility] N/A: Cervical Vertebrae Medtronic Spine/Ortho 01/01/2026 [id number] / [id number] / Medtronic Spacer 7mm X 16mm X 14 Mm Implanted:Qty: 1 on 03/05/2022 by Bernardo Lopez MD at [facility] N/A: Cervical Vertebrae Medtronic Spine/Ortho 12/30/2029 [id number] / / 35MT Plate Cerv 1lvl 23mm Ewen Vision Elite Ant - [id number] Implanted:Qty: 1 on 03/05/2022 by Bernardo Lopez MD at [facility] N/A: Cervical Vertebrae Medtronic Spine/Ortho [id number] / / Screw Cerv Ant 4x16mm Ewen Translational Fa Slf Tppng - [id number] Implanted:Qty: 2 on 03/05/2022 by Bernardo Lopez MD at [facility] N/A: Cervical Vertebrae Medtronic Spine/Ortho [id number] / / Screw Cerv Ant 4x16mm Ewen Translational Va Slf Tppng - [id number] Implanted:Qty: 2 on 03/05/2022 by Bernardo Lopez MD at [facility] N/A: Cervical Vertebrae Medtronic Spine/Ortho [id number] / / Insurance [facility] Advance Directives * Full Code (Latest Code Status on File) Date Activated Date Inactivated Comments 03/05/2022 1:35 PM 03/05/2022 11:57 PM Question Answer Comments Code Status Discussion: Per Existing Order Care Teams Design/Animation Instructor Relationship Specialty Start Date End Date Jose M Cruz MD [address] [place] [address] PCP - General Family Practice 02/17/22
--- OUTSIDE RECORDS SUMMARY | 2025-01-15 22:19 | XMS_ITS | Clinical Summary ---
Author Organization [facility] Address [address] [place] [address]. [place] [address] Care Team Providers Care Milk Of Lime Slaker Name Role Phone Unavailable Primary Care Provider Unavailabl e Allergies Active Allergy Reactions Criticality Noted Date Comments Seasonal Allergies 11/27/2011 Medications Naproxen Sodium (ALEVE PO) Take by mouth 2 times daily Active multivitamin w/minerals (MULTI-VITAMIN) tablet Take 1 tablet by mouth daily Active Glucosamine-Theo droitin (GLUCOSAMINE CHONDR COMPLEX PO) Active HYDROcodone-acet aminophen (NORCO) 5-325 MG tabletIndication s:Umbilical hernia without obstruction and without gangrene Take 1-2 tablets by mouth every 4 hours as needed (Moderate to Severe Pain) 20 tablet 05/11/2018 Active Active Problems Problem Noted Date Diagnosed Date Other kyphoscoliosis and scoliosis 06/21/2007 Lipoma of other skin and subcutaneous tissue Allergic rhinitis 03/05/2004 Overview (05/09/2018): Overview: Rhinitis Allergic NOS Resolved Problems Problem Noted Date Diagnosed Date Resolved Date CARDIOVASCULAR SCREENING; LD L GOAL LESS THAN 160 04/06/2010 06/12/2015 Immunizations Immunization Administration Dates Next Due TDAP Vaccine (Adacel) [...] at Not on file 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 Gender Identity Not on file Sexual Orientation Not on file Occupation Industry Job Start Date Job End Date Not on file Not on file Not on file Not on file Last Filed Vital Signs Vital Sign Reading Time Taken Comments Blood Pressure 129/71 05/11/2018 6:14 PM SAP BI DEVELOPER Pulse 68 05/09/2018 9:39 AM SAP BI DEVELOPER Temperature 36.3 C (97.3 F) 05/11/2018 5:24 PM SAP BI DEVELOPER Respiratory Rate 16 05/11/2018 6:14 PM SAP BI DEVELOPER Oxygen Saturation 95% 05/11/2018 6:14 PM SAP BI DEVELOPER Inhaled Oxygen Concentration - - Weight 103.4 kg (228 lb) 05/11/2018 11:52 AM SAP BI DEVELOPER Height 190.5 cm (6' 3) 05/11/2018 11:52 AM SAP BI DEVELOPER Body Mass Index 28.5 05/11/2018 11:52 AM SAP BI DEVELOPER Plan of Treatment Not on file Medical Devices Implanted Type Area Dairy Husbandman Device Identifier Shelf Expiration Date Model / Serial / Lot Mesh Ventralex Hernia 2.5 Little Shell Tribe Med W/Strap [id number] Implanted:Qty : 1 on 05/11/2018 by Anna Balbuena MD at [facility] Mesh N/A: Umbilical CR [employer] INC-DAVOL 02/02/2020 [id number] / / [id number] Mesh Ultrapro Hernia 2.4x4.7 Large Uhsl Implanted:Qty : 1 on 06/19/2015 by Trent Thompson MD at [facility] Left: Inguinal [employer]- 10/04/2016 [id number] / / [id number] Insurance [facility]
--- OUTSIDE RECORDS SUMMARY | 2025-01-15 22:19 | XMS_ITS | Clinical Summary ---
Author Organization [facility] Address [address], [place] [address] Care Team Providers Care Tube Turner Name Role Phone Clinician, Not Found MD Primary Care Provider Un available Source Comments You are receiving this document as you are listed as the primary care provider,follow-up provider, or the patient has been referred to you for consultation.This is in compliance with the Medicare and[facility] EHR Incentive Program,which states Providers who transition their patient to another setting of careor provider of care or refers their patient to another provider of care shouldprovide summary care record for each transition of care or referral. [facility] Allergies No known active allergies Medications ALBUTEROL IN Inhale 2 puffs every 4 hours as needed. LW Addl Instr:Indica harper for: Asthma/cough 34 3 09/18/2007 Active mometasone [...] Puff two times a day. 08/14/2020 Active Glucosamine-Cho ndroitin 6896-0957 MG/30ML Take by mouth. Active multivitamin with [...] Noted Date Diagnosed Date Allergic rhinitis 03/05/2004 Overview (01/27/2017): Rhinitis Allergic NOS Social History Tobacco Use Types Packs/Day Years Used Date Smoking Tobacco: Never Smokeless Tobacco: Never Alcohol Use Standard Drinks/Week Comments Yes 0 (1 standard drink = 0.6 oz pur e alcohol) socially Sex and Gender Information Value Date Recorded Sex Assigned at Not on file Legal Sex Male 6:05 AM CDT Gender Identity Not on file Sexual Orientation Not on file Last Filed Vital Signs Vital Sign Reading Time Taken Comments Blood Pressure 137/86 03/09/2016 10:45 AM CDT Pulse 54 03/09/2016 10:45 AM CDT Temperature 35.7 C (96.2 F) 09/27/2020 2:34 PM CDT Respiratory Rate 16 03/09/2016 10:45 AM CDT [...] Services) 1981 Adult Preventive Visit 1983 HepB Vaccine (1) 1984 Cholesterol 10/31/2009 10/31/2004 Pneumococcal Vaccine 50+ Yrs (1 of 1 - PCV) 2015 COVID-19 Vaccine (4 - 2023-2 5 season) 2024 05/14/2021, 10/08/2020, 09/17/2020 Influenza Vaccine (#1) 2025 2, 04/04/2018 DTaP/Tdap/Td Vaccine (3 - Tdap) 07/19/2030 07/19/2020, 04/02/2008 Zoster/Shingles Vaccine Completed 01/29/20 22, 05/14/2021 HepA Vaccine Aged Out No longer eligi ble based on patient's age to complete this topic Hib Vaccine Aged Out No longer eligi ble based on patient's age to complete this topic IPV (Polio) Vaccine Aged Out No longe r eligible based on patient's age to complete this topic MCV4 Vaccine Aged Out No longer eligi ble based on patient's age to complete this topic Meningococcal B Vaccine Aged Out No l onger eligible based on patient's age to complete this topic Medical Devices Implanted Type Area Pharmacy Service Associate Device Identifier Shelf Expiration Date Model / Serial / Lot Anch Sut Bioswlk C 4.75x19 - [id number] Implanted:Qty: 2 on 03/09/2016 by Eric Sherwood MD at [facility] Right: SHOULDER [employer] 11/04/2017 [id number] / [id number] / [id number] Procedures Procedure Name Priority Date/Time Associated Diagnosis [...] >159 mg/dL 10/31/2004 10:5 8 AM CDT us Paul Landrum MD LAB_[email or web address] Edited Resu lt - Final HP CONVERSION from Last 3 Months or Most Recently Relevant to Health Maintenance Insurance [facility] Advance Directives * Full Code (Latest Code Status on File) Date Activated Date Inactivated Comments 03/09/2016 9:11 AM 03/09/2016 1:28 PM Full code in effect for 30 days Care Teams Tube Turner Relationship Specialty Start Date End Date Clinician, Not Found, [facility] [address] PCP - General 09/19/15
--- NOTE | 2025-01-15 22:36 | ED.CHESTPAIN ---
HPI - Chest Pain General Time Seen by Provider: 22:36 <Candie Fabian MD - Last Filed: 01/16/25 01:24> Date Seen: 01/15/25 <Candie Fabian MD - Last Filed: 01/16/25 01:24> Chief Complaint: Chest Pain <Candie Fabian MD - Last Filed: 01/16/25 01:24> Stated Complaint: high bp, tight chest, dizzy <Candie Fabian MD - Last Filed: 01/16/25 01:24> Time Seen by Provider: 01/15/25 22:36 <Candie Fabian MD - Last Filed: 01/16/25 01:24> Source: patient, RN notes reviewed and old records reviewed <Candie Fabian MD - Last Filed: 01/16/25 01:24> Mode of arrival: ambulatory <Candie Fabian MD - Last Filed: 01/16/25 01:24> Limitations: no limitations <Candie Fabian MD - Last Filed: 01/16/25 01:24> History of Present Illness HPI narrative: Haris is a very pleasant 59-year-old gentleman with a history of hypertension currently on telmisartan/hydrochlorothiazide, history of hyperlipidemia not currently on medications who comes to the emergency room for evaluation regarding chest tightness and dizziness. Haris notes that he was on a walk tonight and had an argument with his and son. He elected to break off and walk on his own. About a quarter a mi after walking independently he had the onset of dizziness that is described as lightheadedness as well as some chest tightness. He notes that it is not pain. He shows the tightness to be in the lower substernal area. It does not radiate into the back or into the arms. He was somewhat short of breath with this. He did go home but when he was on his way to the hospital he was feeling nauseated and almost vomited. He is discussing symptoms of GERD. Once here he did walk around in the parking lot for a little bit before coming in. Walking around did seem to increase the chest tightness. Haris has not had any heart problems in the past. He was actually scheduled for a stress test but his insurance declined it. Haris denies tobacco use, drug use. Alcohol use is occasional. He does note significant stress in his life at this time. No recent cough cold congestion fever. No significant family history of heart disease. <Candie Fabian MD - Last Filed: 01/16/25 01:24> Related Data Home Medications: Previous Rx's ?Medication ?Instructions ?Recorded albuterol sulfate 90 mcg/actuation 2 puff inhalation Q6H PRN 08/17/24 aerosol inhaler shortness of breath or wheezing #8.5 grams cetirizine 10 mg tablet (Zyrtec) 10 mg PO QDAY PRN allergy symptoms 08/17/24 #90 tabs blood pressure test kit-large #1 ea 10/17/24 telmisartan 40 1 - 2 tab PO QDAY #60 tabs 01/08/25 mg-hydrochlorothiazide 12.5 mg tablet <Candie Fabian MD - Last Filed: 01/16/25 01:24> Allergies/Adverse Reactions: Allergies Allergy/AdvReac Type Severity Reaction Status Date / Time No Known Allergies Allergy Unknown Verified 01/08/25 12:16 <Candie Fabian MD - Last Filed: 01/16/25 01:24> Review of Systems Status of ROS Reports: 10 or more systems reviewed and unremarkable except as noted in History and below <Candie Fabian MD - Last Filed: 01/16/25 01:24> Const Denies: fever, chills or fatigue <Candie Fabian MD - Last Filed: 01/16/25 01:24> Eyes Denies: change in vision <Candie Fabian MD - Last Filed: 01/16/25 01:24> ENMT Denies: throat pain, neck pain, vertigo or nasal congestion <Candie Fabian MD - Last Filed: 01/16/25 01:24> Cardio Reports: chest pain (Described as tight), lightheadedness and shortness of breath with exertion; Denies: edema or swelling of feet/ankles <Candie Fabian MD - Last Filed: 01/16/25 01:24> Resp Reports: shortness of breath; Denies: cough <Candie Fabian MD - Last Filed: 01/16/25 01:24> GI Reports: nausea; Denies: abdominal pain or vomiting <Candie Fabian MD - Last Filed: 01/16/25 01:24> Denies: painful urination <Candie Fabian MD - Last Filed: 01/16/25 01:24> Musculo Denies: back pain, neck pain or extremity pain <Candie Fabian MD - Last Filed: 01/16/25 01:24> Neuro Reports: dizziness; Denies: headache or vertigo <Candie Fabian MD - Last Filed: 01/16/25 01:24> Psych Reports: other (Significant stress) <Candie Fabian MD - Last Filed: 01/16/25 01:24> Endo Denies: fatigue <Candie Fabian MD - Last Filed: 01/16/25 01:24> [facility] Medical History: Medical History Hypertension ?I10 - Essential (primary) hypertension (ICD-10) Numerous moles ?D22.9 - Melanocytic nevi, unspecified (ICD-10) Hypercholesteremia ?E78.00 - Pure hypercholesterolemia, unspecified (ICD-10) Dupuytren's contracture of right hand ?M72.0 - Palmar fascial fibromatosis [Dupuytren] (ICD-10) Lesion of nose ?J34.89 - Other specified disorders of nose and nasal sinuses (ICD-10) <Candie Fabian MD - Last Filed: 01/16/25 01:24> Surgical History: Surgical History History of umbilical hernia repair (05/11/18) ?Z98.890 - Other specified postprocedural states (ICD-10) ?Z87.19 - Personal history of other diseases of the digestive system (ICD-10) History of sinus surgery ?Z98.890 - Other specified postprocedural states (ICD-10) History of repair of right rotator cuff (03/09/16) ?Z98.890 - Other specified postprocedural states (ICD-10) History of left inguinal hernia repair (06/19/15) ?Z98.890 - Other specified postprocedural states (ICD-10) ?Z87.19 - Personal history of other diseases of the digestive system (ICD-10) History of arthroscopy of both knees ?Z98.890 - Other specified postprocedural states (ICD-10) <Candie Fabian MD - Last Filed: 01/16/25 01:24> Family History: Family History Mother Ovarian cancer Father Prostate cancer Grandfather Colon cancer <Candie Fabian MD - Last Filed: 01/16/25 01:24> Social History: Social History Narrative: 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 What is your current living situation?: I presently have a place to live Problems where you live: no known problems In the past 12 months, utilities in danger of being shut off: no In past 12 months, lack of transportation kept you from medical appts, meetings, work, or getting things needed for daily living: no In the past 12 mos, have been you worried that your food would run out before you had money to buy more?: never true In the past 12 mos, the food you bought just didn't last and you didn't have money to buy more?: never true Smoking Status: Never smoker Do you use any of these nicotine containing products: None Second hand tobacco smoke exposure: No How often do you have a drink containing alcohol: monthly or less How often do you have six or more drinks on one occasion: Never AUDIT-C Alcohol total score: 1 Non-prescribed substance use: denies use How often does anyone, including family, friends and others, physically hurt you: never How often does anyone, including family, friends and others, insult or talk down to you: never How often does anyone, including family, friends and others, threaten you with harm: never How often does anyone, including family, friends and others, scream or curse at you: never service: No <Candie Fabian MD - Last Filed: 01/16/25 01:24> Exam Narrative Exam Narrative: Alert and oriented. Very pleasant gentleman. No acute distress. External ears eyes nose clear. Mentation and speech is normal. Heart with regular rate and rhythm. Occasional additional systole with compensatory pause but no other unusual sounds. Lungs are clear bilaterally. Abdomen is soft nontender. No pulsating mass. Lower extremities without edema calf tenderness and pedal pulses are symmetrical. <Candie Fabian MD - Last Filed: 01/16/25 01:24> Const Vital Signs, click to edit/add: Vital Signs - 24 hr 01/15/25 22:28 01/15/25 22:33 01/15/25 22:42 Temperature 97.7 F Pulse Rate 65 66 Pulse Rate [Pulse Oximeter] 70 Respiratory Rate 18 14 15 Blood Pressure 187/110 H Blood Pressure [Right Upper Arm] 195/98 H Pulse Oximetry 97 94 95 Oxygen Delivery Method Room Air 01/15/25 22:45 01/15/25 22:46 01/15/25 22:47 Temperature Pulse Rate 65 68 75 Pulse Rate [Pulse Oximeter] Respiratory Rate 15 18 23 Blood Pressure 178/93 H 173/102 H Blood Pressure [Right Upper Arm] Pulse Oximetry 93 93 93 Oxygen Delivery Method 01/15/25 22:50 01/15/25 22:52 01/15/25 22:53 Temperature Pulse Rate 75 72 Pulse Rate [Pulse Oximeter] Respiratory Rate 10 L Blood Pressure 164/88 H 165/90 H Blood Pressure [Right Upper Arm] Pulse Oximetry 95 93 93 Oxygen Delivery Method 01/15/25 22:54 01/15/25 22:55 01/15/25 23:00 Temperature Pulse Rate 76 72 74 Pulse Rate [Pulse Oximeter] Respiratory Rate 14 10 L 16 Blood Pressure 156/85 H 152/84 H Blood Pressure [Right Upper Arm] Pulse Oximetry 92 93 92 Oxygen Delivery Method 01/15/25 23:02 01/15/25 23:03 01/15/25 23:15 Temperature Pulse Rate 65 66 58 L Pulse Rate [Pulse Oximeter] Respiratory Rate 13 9 L 16 Blood Pressure 153/86 H Blood Pressure [Right Upper Arm] Pulse Oximetry 93 93 93 Oxygen Delivery Method 01/15/25 23:18 01/15/25 23:30 01/15/25 23:33 Temperature Pulse Rate 56 L Pulse Rate [Pulse Oximeter] Respiratory Rate 14 13 16 Blood Pressure 155/84 H 156/84 H Blood Pressure [Right Upper Arm] Pulse Oximetry 94 Oxygen Delivery Method 01/15/25 23:47 01/15/25 23:48 01/16/25 00:00 Temperature Pulse Rate 54 L Pulse Rate [Pulse Oximeter] Respiratory Rate 14 13 15 Blood Pressure 152/82 H Blood Pressure [Right Upper Arm] Pulse Oximetry 93 Oxygen Delivery Method 01/16/25 00:02 01/16/25 00:02 01/16/25 00:02 Temperature Pulse Rate 53 L 53 L 53 L Pulse Rate [Pulse Oximeter] Respiratory Rate 14 14 14 Blood Pressure 154/81 H 154/81 H 154/81 H Blood Pressure [Right Upper Arm] Pulse Oximetry 93 93 93 Oxygen Delivery Method 01/16/25 00:15 01/16/25 00:17 01/16/25 00:30 Temperature Pulse Rate 52 L 51 L 53 L Pulse Rate [Pulse Oximeter] Respiratory Rate 14 12 14 Blood Pressure 146/86 H Blood Pressure [Right Upper Arm] Pulse Oximetry 94 95 93 Oxygen Delivery Method 01/16/25 00:32 01/16/25 00:45 01/16/25 00:47 Temperature Pulse Rate 52 L 51 L 52 L Pulse Rate [Pulse Oximeter] Respiratory Rate 14 14 15 Blood Pressure 145/83 H 139/80 Blood Pressure [Right Upper Arm] Pulse Oximetry 93 93 93 Oxygen Delivery Method 01/16/25 01:00 01/16/25 01:02 01/16/25 01:15 Temperature Pulse Rate 50 L 55 L 54 L Pulse Rate [Pulse Oximeter] Respiratory Rate 12 20 15 Blood Pressure 152/84 H Blood Pressure [Right Upper Arm] Pulse Oximetry 96 92 93 Oxygen Delivery Method 01/16/25 01:17 Temperature Pulse Rate 55 L Pulse Rate [Pulse Oximeter] Respiratory Rate 16 Blood Pressure 147/83 H Blood Pressure [Right Upper Arm] Pulse Oximetry 94 Oxygen Delivery Method <Candie Fabian MD - Last Filed: 01/16/25 01:24> Vital Signs - 24 hr 01/15/25 22:28 01/15/25 22:33 01/15/25 22:42 Temperature 97.7 F Pulse Rate 65 66 Pulse Rate [Pulse Oximeter] 70 Respiratory Rate 18 14 15 Blood Pressure 187/110 H Blood Pressure [Right Upper Arm] 195/98 H Pulse Oximetry 97 94 95 Oxygen Delivery Method Room Air 01/15/25 22:45 01/15/25 22:46 01/15/25 22:47 Temperature Pulse Rate 65 68 75 Pulse Rate [Pulse Oximeter] Respiratory Rate 15 18 23 Blood Pressure 178/93 H 173/102 H Blood Pressure [Right Upper Arm] Pulse Oximetry 93 93 93 Oxygen Delivery Method 01/15/25 22:50 01/15/25 22:52 01/15/25 22:53 Temperature Pulse Rate 75 72 Pulse Rate [Pulse Oximeter] Respiratory Rate 10 L Blood Pressure 164/88 H 165/90 H Blood Pressure [Right Upper Arm] Pulse Oximetry 95 93 93 Oxygen Delivery Method 01/15/25 22:54 01/15/25 22:55 01/15/25 23:00 Temperature Pulse Rate 76 72 74 Pulse Rate [Pulse Oximeter] Respiratory Rate 14 10 L 16 Blood Pressure 156/85 H 152/84 H Blood Pressure [Right Upper Arm] Pulse Oximetry 92 93 92 Oxygen Delivery Method 01/15/25 23:02 01/15/25 23:03 01/15/25 23:15 Temperature Pulse Rate 65 66 58 L Pulse Rate [Pulse Oximeter] Respiratory Rate 13 9 L 16 Blood Pressure 153/86 H Blood Pressure [Right Upper Arm] Pulse Oximetry 93 93 93 Oxygen Delivery Method 01/15/25 23:18 01/15/25 23:30 01/15/25 23:33 Temperature Pulse Rate 56 L Pulse Rate [Pulse Oximeter] Respiratory Rate 14 13 16 Blood Pressure 155/84 H 156/84 H Blood Pressure [Right Upper Arm] Pulse Oximetry 94 Oxygen Delivery Method 01/15/25 23:47 01/15/25 23:48 01/16/25 00:00 Temperature Pulse Rate 54 L Pulse Rate [Pulse Oximeter] Respiratory Rate 14 13 15 Blood Pressure 152/82 H Blood Pressure [Right Upper Arm] Pulse Oximetry 93 Oxygen Delivery Method 01/16/25 00:02 01/16/25 00:02 01/16/25 00:02 Temperature Pulse Rate 53 L 53 L 53 L Pulse Rate [Pulse Oximeter] Respiratory Rate 14 14 14 Blood Pressure 154/81 H 154/81 H 154/81 H Blood Pressure [Right Upper Arm] Pulse Oximetry 93 93 93 Oxygen Delivery Method 01/16/25 00:15 01/16/25 00:17 01/16/25 00:30 Temperature Pulse Rate 52 L 51 L 53 L Pulse Rate [Pulse Oximeter] Respiratory Rate 14 12 14 Blood Pressure 146/86 H Blood Pressure [Right Upper Arm] Pulse Oximetry 94 95 93 Oxygen Delivery Method 01/16/25 00:32 01/16/25 00:45 01/16/25 00:47 Temperature Pulse Rate 52 L 51 L 52 L Pulse Rate [Pulse Oximeter] Respiratory Rate 14 14 15 Blood Pressure 145/83 H 139/80 Blood Pressure [Right Upper Arm] Pulse Oximetry 93 93 93 Oxygen Delivery Method 01/16/25 01:00 01/16/25 01:02 01/16/25 01:15 Temperature Pulse Rate 50 L 55 L 54 L Pulse Rate [Pulse Oximeter] Respiratory Rate 12 20 15 Blood Pressure 152/84 H Blood Pressure [Right Upper Arm] Pulse Oximetry 96 92 93 Oxygen Delivery Method 01/16/25 01:17 Temperature Pulse Rate 55 L Pulse Rate [Pulse Oximeter] Respiratory Rate 16 Blood Pressure 147/83 H Blood Pressure [Right Upper Arm] Pulse Oximetry 94 Oxygen Delivery Method <Trent Art MD - Last Filed: 01/16/25 02:53> Documenting provider has reviewed patient's vital signs: yes <Candie Fabian MD - Last Filed: 01/16/25 01:24> Course Course ED Course: Patient noted to be presenting to the ED with chest tightness dizziness shortness of breath with cardiac risk factors including hyperlipidemia hypertension and male sex. Blood pressure elevated at 187/110 as I speak with patient. Differential diagnosis includes but is not limited to stress reaction, acute coronary syndrome, angina, GERD, esophageal spasm, hypertensive emergency, anxiety, aortic dissection.. At this time will give 1 dose of nitroglycerin with 2nd to follow if no improvement. Aspirin 324 mg p.o. x1. EKG reassuring at this time but will do cardiac workup including troponin, CBC, comprehensive, D-dimer chest x-ray and EKG. <Candie Fabian MD - Last Filed: 01/16/25 01:24> Reevaluation(s) Reevaluation #1: Patient has had resolution of all of his heartburn symptoms as well as chest tightness. Still does have some residual dizziness. Blood pressure is now 152/82. Initial troponin is negative. I speak with Haris about his risk factors as well as his symptoms. I do not think that we would be able to rule out acute coronary syndrome with a quick 90 minute check. We will be rechecking at 0015 hours. But if that is negative I do plan on admission overnight with stress test tomorrow morning. <Candie Fabian MD - Last Filed: 01/16/25 01:24> Reevaluation #2: 2nd troponin negative. Patient feels less dizzy after fluid bolus. Blood pressure now 139/90. Continues to have resolution of any chest tightness. <Candie Fabian MD - Last Filed: 01/16/25 01:24> Vital Signs Vital signs: Initial Vital Signs Temperature 97.7 F 01/15/25 22:28 Temperature Source Temporal Artery Scan 01/15/25 22:28 Pulse Rate 70 01/15/25 22:28 Respiratory Rate 18 01/15/25 22:28 Blood Pressure 195/98 H 01/15/25 22:28 Blood Pressure Mean 130 H 01/15/25 22:28 Blood Pressure Position Sitting 01/15/25 22:28 Pulse Oximetry 97 01/15/25 22:28 Oxygen Delivery Method Room Air 01/15/25 22:28 Vital Signs Temperature 97.7 F 01/15/25 22:28 Pulse Rate 70 01/15/25 22:28 Respiratory Rate 18 01/15/25 22:28 Blood Pressure 195/98 H 01/15/25 22:28 Pulse Oximetry 97 01/15/25 22:28 Oxygen Delivery Method Room Air 01/15/25 22:28 Temperature 97.7 F 01/15/25 22:28 Pulse Rate 55 L 01/16/25 01:17 Respiratory Rate 16 01/16/25 01:17 Blood Pressure 147/83 H 01/16/25 01:17 Pulse Oximetry 94 01/16/25 01:17 Oxygen Delivery Method Room Air 01/15/25 22:28 <Candie Fabian MD - Last Filed: 01/16/25 01:24> Initial Vital Signs Temperature 97.7 F 01/15/25 22:28 Temperature Source Temporal Artery Scan 01/15/25 22:28 Pulse Rate 70 01/15/25 22:28 Respiratory Rate 18 01/15/25 22:28 Blood Pressure 195/98 H 01/15/25 22:28 Blood Pressure Mean 130 H 01/15/25 22:28 Blood Pressure Position Sitting 01/15/25 22:28 Pulse Oximetry 97 01/15/25 22:28 Oxygen Delivery Method Room Air 01/15/25 22:28 Vital Signs Temperature 97.7 F 01/15/25 22:28 Pulse Rate 70 01/15/25 22:28 Respiratory Rate 18 01/15/25 22:28 Blood Pressure 195/98 H 01/15/25 22:28 Pulse Oximetry 97 01/15/25 22:28 Oxygen Delivery Method Room Air 01/15/25 22:28 Temperature 97.7 F 01/15/25 22:28 Pulse Rate 55 L 01/16/25 01:17 Respiratory Rate 16 01/16/25 01:17 Blood Pressure 147/83 H 01/16/25 01:17 Pulse Oximetry 94 01/16/25 01:17 Oxygen Delivery Method Room Air 01/15/25 22:28 <Trent Art MD - Last Filed: 01/16/25 02:53> Medications Administered Medications: Generic Name Dose Route Start Last Admin Trade Name Freq PRN Reason Stop Dose Admin Nitroglycerin 0.4 mg 01/15/25 22:48 01/15/25 22:51 Nitroglycerin 0.4 Mg Tab.Subl SUBLINGUAL 0.4 mg Q5M PRN Administration Chest Pain Discontinued Medications Generic Name Dose Route Start Last Admin Trade Name Freq PRN Reason Stop Dose Admin Aspirin 324 mg 01/15/25 22:48 01/15/25 22:58 Aspirin 81 Mg Tab.Chew PO 01/15/25 22:49 324 mg ONCE ONE Administration Sodium Chloride 500 mls @ 500 mls/hr 01/15/25 23:49 01/16/25 01:23 0.9 % Sodium Chloride 500 Ml IV 01/16/25 00:48 Infused .Q1H [facility] Infusion <Candie Fabian MD - Last Filed: 01/16/25 01:24> Generic Name Dose Route Start Last Admin Trade Name Freq PRN Reason Stop Dose Admin Nitroglycerin 0.4 mg 01/15/25 22:48 01/15/25 22:51 Nitroglycerin 0.4 Mg Tab.Subl SUBLINGUAL 0.4 mg Q5M PRN Administration Chest Pain Discontinued Medications Generic Name Dose Route Start Last Admin Trade Name Freq PRN Reason Stop Dose Admin Aspirin 324 mg 01/15/25 22:48 01/15/25 22:58 Aspirin 81 Mg Tab.Chew PO 01/15/25 22:49 324 mg ONCE ONE Administration Sodium Chloride 500 mls @ 500 mls/hr 01/15/25 23:49 01/16/25 01:23 0.9 % Sodium Chloride 500 Ml IV 01/16/25 00:48 Infused .Q1H [facility] Infusion <Trent Art MD - Last Filed: 01/16/25 02:53> MDM - Chest Pain MDM Narrative Medical decision making narrative: 1. Chest pain-initial 2 troponins negative. Patient noted to have cardiac risk factors including hyperlipidemia untreated hypertension treated with a thiazide and Arb. Patient had relief of chest pain after 2nd nitroglycerin. Pain has not returned. Aspirin 324 mg given p.o.. At the pleasure of speaking with Dr. Leon, cardiology. Notes previous calcium score was 0. Agrees with hospitalization in [place] with stress echo tomorrow. 2. Hypertension-currently on hydrochlorothiazide and an ARB. Blood pressure improved after nitroglycerin x2. Now 139 systolic. 3. GERD like symptoms-resolved after nitroglycerin. Pain certainly could indicate esophageal spasm be given cardiac risk factors, worsening pain with ambulation in the parking lot prior to arrival as well as shortness of breath would need to rule out underlying cardiac cause her some. 4. Disposition-pending [facility] the [facility]. This patient is signed out to my colleague Dr. Art. <Candie Fabian MD - Last Filed: 01/16/25 01:24> 1. Chest pain-initial 2 troponins negative. Patient noted to have cardiac risk factors including hyperlipidemia untreated hypertension treated with a thiazide and Arb. Patient had relief of chest pain after 2nd nitroglycerin. Pain has not returned. Aspirin 324 mg given p.o.. At the pleasure of speaking with Dr. Leon, cardiology. Notes previous calcium score was 0. Agrees with hospitalization in [place] with stress echo tomorrow. 2. Hypertension-currently on hydrochlorothiazide and an ARB. Blood pressure improved after nitroglycerin x2. Now 139 systolic. 3. GERD like symptoms-resolved after nitroglycerin. Pain certainly could indicate esophageal spasm be given cardiac risk factors, worsening pain with ambulation in the parking lot prior to arrival as well as shortness of breath would need to rule out underlying cardiac cause her some. 4. Disposition-pending transfer to the floor. Currently awaiting [facility] hospitalist. Stress echo ordered for tomorrow morning. This patient is signed out to my colleague Dr. Art. Kaelyn -- received patient anticipating transfer to hospitalist for further cares. Reviewed case. Discussed this case with admitting hospitalist. No further events during time in the emergency department. Have ordered for another troponin <Trent Art MD - Last Filed: 01/16/25 02:53> Medical Records Data Attestation: I reviewed the patient's medical records. <Candie Fabian MD - Last Filed: 01/16/25 01:24> Lab Data Attestation: I reviewed the patient's lab results. <Candie Fabian MD - Last Filed: 01/16/25 01:24> Labs: Lab Results 01/15/25 01/15/25 01/15/25 Range/Units 22:38 22:48 23:02 WBC 5.42 (4.50-11.00) K/uL RBC 4.62 (4.30-5.90) m/uL Hgb 14.6 (13.5-17.5) gm/dL Hct 42.5 (37.0-53.0) % MCV 92 (80-100) fL MCH 32 (26-34) pg MCHC 34 (32-36) gm/dL RDW Coeff of John 12.0 (11.5-15.5) % Plt Count 193 (140-440) K/uL Neut % (Auto) 58.8 (42.0-72.0) % Lymph % (Auto) 25.5 (20-44) % [place] % (Auto) 11.6 H (0.0-11.0) % Eos % (Auto) 2.8 (0.0-7.0) % Baso % (Auto) 0.6 (0.0-3.0) % Neut # (Auto) 3.19 (1.7-7.0) K/uL Lymph # (Auto) 1.38 (0.90-2.90) K/uL [place] # (Auto) 0.60 (0.00-0.90) K/UL Eos # (Auto) 0.15 (0.00-0.50) K/uL Baso # (Auto) 0.03 (0.00-0.30) K/uL Abs Immat Gran (auto) 0.04 (0.00-0.30) K/uL Imm/Tot Granulo (auto) 0.7 % D-Dimer Quant (PE/DVT) 0.20 (0.00-0.50) ug/ml Sodium 140 (135-149) mmol/L Potassium 4.1 (3.6-5.1) mmol/L Chloride 106 (96-114) mmol/L Carbon Dioxide 30 (20-32) mmol/L Anion Gap 4 L (7-15) mEq/L BUN 21 (7-30) mg/dL Creatinine 1.1 (0.5-1.5) mg/dL Estimated Creat Clear 86.42 Estimated GFR 77 ml/min Glucose 95 (60-115) mg/dL Calcium 10.0 (8.4-10.6) mg/dL Total Bilirubin 0.9 (0.1-1.5) mg/dL AST 48 H (12-35) U/L ALT 79 H (4-50) U/L Alkaline Phosphatase 68 (40-150) U/L Total Protein 7.1 (6.0-8.3) g/dL Albumin 4.4 (3.3-5.0) g/dL Lipase 108 (23-300) U/L Lab Acknowledgement Test Added POC Troponin I 0.01 (0.01-0.04) ng/ml 01/16/25 Range/Units 00:22 WBC (4.50-11.00) K/uL RBC (4.30-5.90) m/uL Hgb (13.5-17.5) gm/dL Hct (37.0-53.0) % MCV (80-100) fL MCH (26-34) pg MCHC (32-36) gm/dL RDW Coeff of John (11.5-15.5) % Plt Count (140-440) K/uL Neut % (Auto) (42.0-72.0) % Lymph % (Auto) (20-44) % [place] % (Auto) (0.0-11.0) % Eos % (Auto) (0.0-7.0) % Baso % (Auto) (0.0-3.0) % Neut # (Auto) (1.7-7.0) K/uL Lymph # (Auto) (0.90-2.90) K/uL [place] # (Auto) (0.00-0.90) K/UL Eos # (Auto) (0.00-0.50) K/uL Baso # (Auto) (0.00-0.30) K/uL Abs Immat Gran (auto) (0.00-0.30) K/uL Imm/Tot Granulo (auto) % D-Dimer Quant (PE/DVT) (0.00-0.50) ug/ml Sodium (135-149) mmol/L Potassium (3.6-5.1) mmol/L Chloride (96-114) mmol/L Carbon Dioxide (20-32) mmol/L Anion Gap (7-15) mEq/L BUN (7-30) mg/dL Creatinine (0.5-1.5) mg/dL Estimated Creat Clear Estimated GFR ml/min Glucose (60-115) mg/dL Calcium (8.4-10.6) mg/dL Total Bilirubin (0.1-1.5) mg/dL AST (12-35) U/L ALT (4-50) U/L Alkaline Phosphatase (40-150) U/L Total Protein (6.0-8.3) g/dL Albumin (3.3-5.0) g/dL Lipase (23-300) U/L Lab Acknowledgement POC Troponin I 0.00 L (0.01-0.04) ng/ml <Candie Fabian MD - Last Filed: 01/16/25 01:24> Lab Results 01/15/25 01/15/25 01/15/25 Range/Units 22:38 22:48 23:02 WBC 5.42 (4.50-11.00) K/uL RBC 4.62 (4.30-5.90) m/uL Hgb 14.6 (13.5-17.5) gm/dL Hct 42.5 (37.0-53.0) % MCV 92 (80-100) fL MCH 32 (26-34) pg MCHC 34 (32-36) gm/dL RDW Coeff of John 12.0 (11.5-15.5) % Plt Count 193 (140-440) K/uL Neut % (Auto) 58.8 (42.0-72.0) % Lymph % (Auto) 25.5 (20-44) % [place] % (Auto) 11.6 H (0.0-11.0) % Eos % (Auto) 2.8 (0.0-7.0) % Baso % (Auto) 0.6 (0.0-3.0) % Neut # (Auto) 3.19 (1.7-7.0) K/uL Lymph # (Auto) 1.38 (0.90-2.90) K/uL [place] # (Auto) 0.60 (0.00-0.90) K/UL Eos # (Auto) 0.15 (0.00-0.50) K/uL Baso # (Auto) 0.03 (0.00-0.30) K/uL Abs Immat Gran (auto) 0.04 (0.00-0.30) K/uL Imm/Tot Granulo (auto) 0.7 % D-Dimer Quant (PE/DVT) 0.20 (0.00-0.50) ug/ml Sodium 140 (135-149) mmol/L Potassium 4.1 (3.6-5.1) mmol/L Chloride 106 (96-114) mmol/L Carbon Dioxide 30 (20-32) mmol/L Anion Gap 4 L (7-15) mEq/L BUN 21 (7-30) mg/dL Creatinine 1.1 (0.5-1.5) mg/dL Estimated Creat Clear 86.42 Estimated GFR 77 ml/min Glucose 95 (60-115) mg/dL Calcium 10.0 (8.4-10.6) mg/dL Total Bilirubin 0.9 (0.1-1.5) mg/dL AST 48 H (12-35) U/L ALT 79 H (4-50) U/L Alkaline Phosphatase 68 (40-150) U/L Total Protein 7.1 (6.0-8.3) g/dL Albumin 4.4 (3.3-5.0) g/dL Lipase 108 (23-300) U/L Lab Acknowledgement Test Added POC Troponin I 0.01 (0.01-0.04) ng/ml 01/16/25 Range/Units 00:22 WBC (4.50-11.00) K/uL RBC (4.30-5.90) m/uL Hgb (13.5-17.5) gm/dL Hct (37.0-53.0) % MCV (80-100) fL MCH (26-34) pg MCHC (32-36) gm/dL RDW Coeff of John (11.5-15.5) % Plt Count (140-440) K/uL Neut % (Auto) (42.0-72.0) % Lymph % (Auto) (20-44) % [place] % (Auto) (0.0-11.0) % Eos % (Auto) (0.0-7.0) % Baso % (Auto) (0.0-3.0) % Neut # (Auto) (1.7-7.0) K/uL Lymph # (Auto) (0.90-2.90) K/uL [place] # (Auto) (0.00-0.90) K/UL Eos # (Auto) (0.00-0.50) K/uL Baso # (Auto) (0.00-0.30) K/uL Abs Immat Gran (auto) (0.00-0.30) K/uL Imm/Tot Granulo (auto) % D-Dimer Quant (PE/DVT) (0.00-0.50) ug/ml Sodium (135-149) mmol/L Potassium (3.6-5.1) mmol/L Chloride (96-114) mmol/L Carbon Dioxide (20-32) mmol/L Anion Gap (7-15) mEq/L BUN (7-30) mg/dL Creatinine (0.5-1.5) mg/dL Estimated Creat Clear Estimated GFR ml/min Glucose (60-115) mg/dL Calcium (8.4-10.6) mg/dL Total Bilirubin (0.1-1.5) mg/dL AST (12-35) U/L ALT (4-50) U/L Alkaline Phosphatase (40-150) U/L Total Protein (6.0-8.3) g/dL Albumin (3.3-5.0) g/dL Lipase (23-300) U/L Lab Acknowledgement POC Troponin I 0.00 L (0.01-0.04) ng/ml <Trent Art MD - Last Filed: 01/16/25 02:53> Imaging Data Chest x-ray: Attestation: I have reviewed the pertinent imaging results. <Candie Fabian MD - Last Filed: 01/16/25 01:24> My impression: I do not note a widened mediastinum. <Candie Fabian MD - Last Filed: 01/16/25 01:24> Radiologist's impression: Cardiovascular and mediastinum: Heart size and vasculature are normal in caliber and appearance. Lungs and pleural spaces: Lungs are clear. No pleural effusion, or pneumothorax. Bones and soft tissues: Anterior cervical fusion hardware. Otherwise, unremarkable for age. IMPRESSION: No evidence of an acute pulmonary process. <Candie Fabian MD - Last Filed: 01/16/25 01:24> ECG Data Attestation: I personally reviewed and interpreted this ECG as follows: <Candie Fabian MD - Last Filed: 01/16/25 01:24> ECG interpretation date: 01/15/25 <Candie Fabian MD - Last Filed: 01/16/25 01:24> ECG interpretation time: 23:05 <Candie Fabian MD - Last Filed: 01/16/25 01:24> Prior ECG tracings: available for review <Candie Fabian MD - Last Filed: 01/16/25 01:24> Interpretation: EKG by my read shows sinus rhythm at a rate of 62. I do not note any acute ST or T-wave changes. QT and MA intervals are within normal limits. 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 Otherwise regular rhythm. <Candie Fabian MD - Last Filed: 01/16/25 01:24> Discharge Plan Discharge Clinical Impression: Chest pain Qualifiers: Chest pain type: unspecified Qualified Code(s): R07.9 - Chest pain, unspecified Hypertension Qualifiers: Hypertension type: unspecified Qualified Code(s): I10 - Essential (primary) hypertension <Candie Fabian MD - Last Filed: 01/16/25 01:24> Patient Disposition: Admitted As Observation <Candie Fabian MD - Last Filed: 01/16/25 01:24> Condition: Improved <Candie Fabian MD - Last Filed: 01/16/25 01:24>
[2025-01-15] MEDS: NITROGLYCERIN 0.4 MG TAB.SUBL SUBLINGUAL ×2 (22:44→22:51)
--- NOTE | 2025-01-15 22:48 | CRLHL7_ITS ---
For Patients: As a result of the Century Cures Act, medical imaging exams and procedure reports are released immediately into your electronic medical record. You may view this report before your referring provider. If you have questions, please contact your health care provider. INDICATION: Chest pain. TECHNIQUE: Chest 1 view. COMPARISON: 06/09/2024. FINDINGS: Cardiovascular and mediastinum: Heart size and vasculature are normal in caliber and appearance. Lungs and pleural spaces: Lungs are clear. No pleural effusion, or pneumothorax. Bones and soft tissues: Anterior cervical fusion hardware. Otherwise, unremarkable for age. IMPRESSION: No evidence of an acute pulmonary process. Dictated by Joe Suazo MD @ 01/16/2025 12:11:01 AM (Electronically Signed)
[2025-01-15 22:52] LABS: Troponin, Point-of-Care* 0.01 ng/ml (0.01-0.04)
[2025-01-15 22:55] LABS: Hematocrit 42.5 % (37.0-53.0); Hemoglobin* 14.6 gm/dL (13.5-17.5); Immature Granulocytes Abs Auto 0.04 K/uL (0.00-0.30); Immature Granulocytes Pct Auto 0.7 %; Lymphocytes Absolute Auto 1.38 K/uL (0.90-2.90); Mean Corpuscular HGB Conc 34 gm/dL (32-36); Mean Corpuscular Hemoglobin 32 pg (26-34); Mean Corpuscular Volume 92 fL (80-100); RDW Coefficient of Variation % 12.0 % (11.5-15.5); Red Blood Count 4.62 m/uL (4.30-5.90); White Blood Count* 5.42 K/uL (4.50-11.00)
[2025-01-15] MEDS: ASPIRIN 81 MG TAB.CHEW 324 MG PO (22:58)
[2025-01-15 22:59] LABS: Albumin* 4.4 g/dL (3.3-5.0); Chloride* 106 mmol/L (96-114); Potassium* 4.1 mmol/L (3.6-5.1); Sodium* 140 mmol/L (135-149)
[2025-01-15 23:01] LABS: Slide Review Reflex No
[2025-01-15 23:02] LABS: Alanine Aminotransferase* 79 U/L (4-50); Alkaline Phosphatase* 68 U/L (40-150); Anion Gap 4 mEq/L (7-15); Aspartate Amino Transferase* 48 U/L (12-35); Bilirubin Total* 0.9 mg/dL (0.1-1.5); Blood Urea Nitrogen* 21 mg/dL (7-30); Calcium* 10.0 mg/dL (8.4-10.6); Carbon Dioxide* 30 mmol/L (20-32); Creatinine* 1.1 mg/dL (0.5-1.5); Est. Creatinine Clearance* 86.42; Estimated Glomerular Filt Rate 77 ml/min; Glucose* 95 mg/dL (60-115); Total Protein* 7.1 g/dL (6.0-8.3)
[2025-01-15 23:24] LABS: D Dimer Quantitative* 0.20 ug/ml (0.00-0.50)
[2025-01-15] MEDS: 0.9 % SODIUM CHLORIDE 500 ML 500 ML IV (23:55)
[2025-01-16] VITALS (17 sets, daily range): BP systolic 139–200; BP diastolic 80–94; PULSE 50–82; RESP 12–20; TEMP 36.6; O2SAT 92–96
[2025-01-16 00:38] LABS: Troponin, Point-of-Care* 0.00 ng/ml (0.01-0.04)
[2025-01-16 03:07] LABS: Troponin, Point-of-Care* 0.00 ng/ml (0.01-0.04)
--- NOTE | 2025-01-16 03:42 | W.PM.THH&P_ITS ---
Telehealth- H&P: HPI History of Present Illness Date Seen: 01/16/25 Chief complaint: high bp, tight chest, dizzy Narrative: Haris Lovelace is seen as an Interactive Telehealth visit. Haris Lovelace is a 59-year-old male with past medical history significant for hypertension, hypercholesterolemia who now presents to the emergency department with chest pressure after being out on a walk earlier today. Patient states he initially got lightheaded and was unable to walk straight then experiencing shortness of breath as well as chest tightness. He did not note radiation to the arms or jaw. He did not note any diaphoresis. He did note nausea and denies emesis. He subsequently came into the emergency department and noted some acid reflux type symptoms as well. Patient was actually scheduled for a stress test but was denied. Of note, patient was initially started on amlodipine October 2024. Ended up having some lower extremity swelling and was switched to losartan which was then escalated to losartan then telmisartan plus hydrochlorothiazide which she is currently on. In the emergency department he underwent 3 sets of troponins that were negative. EKG without significant ST-T changes. WBC count 5.42, hemoglobin 14.6, hematocrit 42.5, platelet count 193. Sodium 140, potassium of 4.1, BUN of 21, creatinine 1.1. AST of 48, ALT of 79. Triglycerides of 220 on 08/17/2024. LDL on 08/17/2024 was 115. Review of Systems Status of ROS: Reports: 10 or more systems reviewed and unremarkable except as noted in History and below [facility] Medical History Hypertension ?I10 - Essential (primary) hypertension (ICD-10) Numerous moles ?D22.9 - Melanocytic nevi, unspecified (ICD-10) Hypercholesteremia ?E78.00 - Pure hypercholesterolemia, unspecified (ICD-10) Dupuytren's contracture of right hand ?M72.0 - Palmar fascial fibromatosis [Dupuytren] (ICD-10) Lesion of nose ?J34.89 - Other specified disorders of nose and nasal sinuses (ICD-10) Surgical History History of umbilical hernia repair (05/11/18) ?Z98.890 - Other specified postprocedural states (ICD-10) ?Z87.19 - Personal history of other diseases of the digestive system (ICD-10) History of sinus surgery ?Z98.890 - Other specified postprocedural states (ICD-10) History of repair of right rotator cuff (03/09/16) ?Z98.890 - Other specified postprocedural states (ICD-10) History of left inguinal hernia repair (06/19/15) ?Z98.890 - Other specified postprocedural states (ICD-10) ?Z87.19 - Personal history of other diseases of the digestive system (ICD-10) History of arthroscopy of both knees ?Z98.890 - Other specified postprocedural states (ICD-10) Family History Mother Ovarian cancer Father Prostate cancer Grandfather Colon cancer Social History Narrative: 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 What is your current living situation?: I presently have a place to live Problems where you live: no known problems In the past 12 months, utilities in danger of being shut off: no In past 12 months, lack of transportation kept you from medical appts, meetings, work, or getting things needed for daily living: no In the past 12 mos, have been you worried that your food would run out before you had money to buy more?: never true In the past 12 mos, the food you bought just didn't last and you didn't have money to buy more?: never true Smoking Status: Never smoker Do you use any of these nicotine containing products: None Second hand tobacco smoke exposure: No How often do you have a drink containing alcohol: monthly or less How often do you have six or more drinks on one occasion: Never AUDIT-C Alcohol total score: 1 Non-prescribed substance use: denies use How often does anyone, including family, friends and others, physically hurt you : never How often does anyone, including family, friends and others, insult or talk down to you: never How often does anyone, including family, friends and others, threaten you with harm: never How often does anyone, including family, friends and others, scream or curse at you: never service: No Meds Home Medications and Allergies Home Medications ?Medication ?Instructions ?Recorded ?Confirmed ?Type albuterol sulfate 90 mcg/actuation 2 puff inhalation Q 6H PRN 08/17/24 01/08/25 Rx aerosol inhaler shortness of breath or wheez ing #8.5 grams cetirizine 10 mg tablet (Zyrtec) 10 mg PO QDAY PRN all ergy symptoms 08/17/24 01/08/25 Rx #90 tabs blood pressure test kit-large #1 ea 10/17/24 01/08/25 Rx telmisartan 40 1 - 2 tab PO QDAY #60 tabs 0 01/08/25 01/08/25 Rx mg-hydrochlorothiazide 12.5 mg tablet Allergies Allergy/AdvReac Type Severity Reaction Status Date / Time No Known Allergies Allergy Unknown Verified 01/08/25 12:16 Exam Narrative Exam Narrative: Physical Exam GENERAL: ?vital signs reviewed, well developed and nourished, in no distress HEENT: pupils are equal round and reactive to light, extraocular movements are grossly within normal limits and oral mucosa is moist. NECK: Supple without lymphadenopathy or thyromegaly according to nursing staff examination observation HEART: Regular rate and rhythm without any rubs, murmurs, or gallops. LUNGS: Clear to auscultation bilaterally with good air movement throughout ABDOMEN: Observation from nurse assisted exam, abdomen appears soft, nontender, and nondistended with Positive bowel sounds noted. EXTREMITIES: Strength and sensation is observed to be grossly within normal l imits in the upper and lower extremities.? No focal strength deficit is observed. SKIN:? Observed warm and dry with color normal Const Vital Signs, click to edit/add: Vital Signs - 24 hr 01/15/25 22:28 01/15/25 22:33 01/15/25 22:42 Temperature 97.7 F Pulse Rate 65 66 Pulse Rate [Pulse Oximeter] 70 Respiratory Rate 18 14 15 Blood Pressure 187/110 H Blood Pressure [Right Upper Arm] 195/98 H Pulse Oximetry 97 94 95 Oxygen Delivery Method Room Air 01/15/25 22:45 01/15/25 22:46 01/15/25 22:47 Temperature Pulse Rate 65 68 75 Pulse Rate [Pulse Oximeter] Respiratory Rate 15 18 23 Blood Pressure 178/93 H 173/102 H Blood Pressure [Right Upper Arm] Pulse Oximetry 93 93 93 Oxygen Delivery Method 01/15/25 22:50 01/15/25 22:52 01/15/25 22:53 Temperature Pulse Rate 75 72 Pulse Rate [Pulse Oximeter] Respiratory Rate 10 L Blood Pressure 164/88 H 165/90 H Blood Pressure [Right Upper Arm] Pulse Oximetry 95 93 93 Oxygen Delivery Method 01/15/25 22:54 01/15/25 22:55 01/15/25 23:00 Temperature Pulse Rate 76 72 74 Pulse Rate [Pulse Oximeter] Respiratory Rate 14 10 L 16 Blood Pressure 156/85 H 152/84 H Blood Pressure [Right Upper Arm] Pulse Oximetry 92 93 92 Oxygen Delivery Method 01/15/25 23:02 01/15/25 23:03 01/15/25 23:15 Temperature Pulse Rate 65 66 58 L Pulse Rate [Pulse Oximeter] Respiratory Rate 13 9 L 16 Blood Pressure 153/86 H Blood Pressure [Right Upper Arm] Pulse Oximetry 93 93 93 Oxygen Delivery Method 01/15/25 23:18 01/15/25 23:30 01/15/25 23:33 Temperature Pulse Rate 56 L Pulse Rate [Pulse Oximeter] Respiratory Rate 14 13 16 Blood Pressure 155/84 H 156/84 H Blood Pressure [Right Upper Arm] Pulse Oximetry 94 Oxygen Delivery Method 01/15/25 23:47 01/15/25 23:48 01/16/25 00:00 Temperature Pulse Rate 54 L Pulse Rate [Pulse Oximeter] Respiratory Rate 14 13 15 Blood Pressure 152/82 H Blood Pressure [Right Upper Arm] Pulse Oximetry 93 Oxygen Delivery Method 01/16/25 00:02 01/16/25 00:02 01/16/25 00:02 Temperature Pulse Rate 53 L 53 L 53 L Pulse Rate [Pulse Oximeter] Respiratory Rate 14 14 14 Blood Pressure 154/81 H 154/81 H 154/81 H Blood Pressure [Right Upper Arm] Pulse Oximetry 93 93 93 Oxygen Delivery Method 01/16/25 00:15 01/16/25 00:17 01/16/25 00:30 Temperature Pulse Rate 52 L 51 L 53 L Pulse Rate [Pulse Oximeter] Respiratory Rate 14 12 14 Blood Pressure 146/86 H Blood Pressure [Right Upper Arm] Pulse Oximetry 94 95 93 Oxygen Delivery Method 01/16/25 00:32 01/16/25 00:45 01/16/25 00:47 Temperature Pulse Rate 52 L 51 L 52 L Pulse Rate [Pulse Oximeter] Respiratory Rate 14 14 15 Blood Pressure 145/83 H 139/80 Blood Pressure [Right Upper Arm] Pulse Oximetry 93 93 93 Oxygen Delivery Method 01/16/25 01:00 01/16/25 01:02 01/16/25 01:15 Temperature Pulse Rate 50 L 55 L 54 L Pulse Rate [Pulse Oximeter] Respiratory Rate 12 20 15 Blood Pressure 152/84 H Blood Pressure [Right Upper Arm] Pulse Oximetry 96 92 93 Oxygen Delivery Method 01/16/25 01:17 Temperature Pulse Rate 55 L Pulse Rate [Pulse Oximeter] Respiratory Rate 16 Blood Pressure 147/83 H Blood Pressure [Right Upper Arm] Pulse Oximetry 94 Oxygen Delivery Method Hospitalist - H&P: Result Labs Labs: Short CBC 01/15/25 Range/Units 22:38 WBC 5.42 (4.50-11.00) K/uL Hgb 14.6 (13.5-17.5) gm/dL Hct 42.5 (37.0-53.0) % Plt Count 193 (140-440) K/uL BMP 01/15/25 22:38 Sodium 140 Potassium 4.1 Chloride 106 Carbon Dioxide 30 BUN 21 Creatinine 1.1 Glucose 95 Calcium 10.0 Liver Function 01/15/25 Range/Units 22:38 Total Bilirubin 0.9 (0.1-1.5) mg/dL AST 48 H (12-35) U/L ALT 79 H (4-50) U/L Alkaline Phosphatase 68 (40-150) U/L Albumin 4.4 (3.3-5.0) g/dL Assessment and Plan Assessment and plan (1) Hypertension: Status: Acute (2) Chest pain: Status: Acute (3) WILLARD (dyspnea on exertion): Status: Acute (4) Hypertension: Status: Acute Plan 59-year-old male with past medical history significant for hypertension, hyperch olesterolemia who now presents to the emergency department with chest pressure, Noted to have an initial blood pressure of 195/98. Chest pain Likely secondary to hypertensive urgency Resume home telmisartan hydrochlorothiazide May need to add agent Consider secondary hypertensive workup Stress echo planned for a.m. Hypercholesterolemia Consider initiation of of statin DVT prophylaxis. ambulation Telehealth: Statement Statement Telehealth Visit: Today's History and Physical is provided via interactive telehealth by Roopa Mancuso MD.? Patient is located at [facility].? Provider is located at [facility].? Nursing staff assisted with the patient's exam. The visit being done today meets criteria for a telehealth visit and the patient or patient?s parent/guardian is aware the visit is a telehealth visit. Camera Start Time: 03:44 Camera End Time: 03:57
--- NOTE | 2025-01-16 05:27 | PC.NURSE ---
End of shift report: Pt admitted to the floor at 0255. Pt is pleasant and cooperative. Alert and orientated x4. VSS. Afebrile. Denies pain. Denies dizziness. Pt is ind in room. Pt is sinus tavo on tele, pt is asymptomatic. Pt is resting in bed, call light within reach.?
[2025-01-16] MEDS: OMEPRAZOLE 20 MG CAPSULE DR 40 MG PO (06:13)
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
[2025-01-16] MEDS: PERFLUTREN LIPID MICROSPHERES 2 ML VIAL IVP (13:56)
--- NOTE | 2025-01-16 13:58 | P.STN_ITS ---
Stress Test Note Date Date Seen: 01/16/25 Date of test: 01/16/25 Providers Referring provider: Grant Britt Primary care provider: Jose M Cruz Stress test physician: Sam Toussaint Stress Test Note Stress test ordered: Stress Echo Indication for test: Chest pain Stress test medicine: Definity Results discussion: Patient is a pleasant 59-year-old gentleman who presents for the above test, he was an inpatient, is troponins ruled out. After discussion the risks benefits side effects he would like to proceed. Cardiac stress test medical history form is reviewed. Pretest EKG shows normal sinus rhythm. With a ventricular rate of 60 and a blood pressure [address] wave changes are noted. Standard Tono protocol is employed over a time course of 9 minutes, he achieved a metabolic workload of 10 Mets. Maximum heart rate was 148, which is 108% of the target. Test is terminated because of fulfillment of protocol. During this test he had no chest pain, he did have some mild wheezing. Test was terminated because only cause of fulfillment of protocol, and he had no subjective complaints of chest pain or anginal equivalents. Review of the tracing did not show any evidence ischemic changes, there are no dysrhythmias. Preliminary take, by the technologist and myself is of no acute large wall motion abnormalities. Impression: Negative both objective and subjective stress echo. Follow up suggested: Await echo imaging, which will be reviewed by Cardiology, patient recovered normally, and will be taken back to the [facility] floor I will discuss the case with the [facility] ordering physician.
== END 2025-01-16 15:15 | disposition home or self-care (01) ==
LOC: ED 01-16 01:18 → MEDSURG 01-16 02:47
PROVIDERS: Family Medicine; Admitting Provider Internal Medicine; Emergency Provider Family Medicine; PCP Family Medicine; Visit Provider Internal Medicine
DX: R07.9 Chest pain, unspecified (principal); R06.09 Other forms of dyspnea; I10 Essential (primary) hypertension
CPT/HCPCS: 36415; 71045; 80053; 83690; 84484; 85025; 85379; 93005; 93016; 93325; 93351; 94761; 96374; 99285; A9270; G0378; J7030; Q9957

== ENCOUNTER 2025-01-29 11:49 | Outpatient (CLI) | payer OTHER, SELFPAY | END 2025-01-29 11:50 | disposition home or self-care (01) | PROVIDERS: PCP Family Medicine; Visit Provider Family Medicine | DX: I10 Essential (primary) hypertension (principal); R53.83 Other fatigue | CPT/HCPCS: 82088; 84244; 84443 ==